=== PATIENT | female | born 1970 | race Caucasian/White ===

== ENCOUNTER 2023-10-26 14:56 | Outpatient (CLI) | payer OTHER, SELFPAY ==
--- OUTSIDE RECORDS SUMMARY | 2023-10-26 14:59 | XMS_ITS | Clinical Summary ---
Author Name Unknown Organization [employer] [facility] [employer] [facility] Address [place], [place] [address] Care Team Providers Care Clinical Trials Assistant Name Role Phone Mar Lizama MD Primary Care Provider [phone] Allergies Active Allergy Reactions Criticality Noted Date Comments Venom-Honey Bee *Unknown 12/06/2020 Lisinopril-Hydrochlorothiazide Rash Low 07/01 Medications Medication Sig Dispensed Refills Start Date End Date Status SUMAtriptan (IMITREX) 50 mg tablet Take 50 mg by mouth 2 times daily if needed. Give at minimum 2hrs apart. Max Dose: 200mg per 24hrs. Active hydrocortisone (ANUSOL-HC) 2.5 % rectal creamIndications:Hemor rhoids, external Apply topically to affected area(s) three times daily. 28 g 05/23/2022 Active amLODIPine (NORVASC) 2.5 mg tabletIndications:Esse ntial (primary) hypertension TAKE 1 TABLET (2.5 MG) BY MOUTH ONCE DAILY. 90 Tablet 1 07/15/2023 Active atorvastatin (LIPITOR) 10 mg tabletIndications:Mixe d hyperlipidemia TAKE 1 TABLET (10 MG) BY MOUTH AT BEDTIME. 90 Tablet 3 07/18/2023 Active Active Problems Problem Noted Date Diagnosed Date Pap smear for cervical cancer screening 04/25/20 Overview: 04/2021 NIL/HPV negative. Plan: Pap/HPV due 04/2026 Essential (primary) hypertension 11/01/2020 Hyperopia of both eyes with astigmatism and pres byopia 04/13/2020 HTN (hypertension) Encounters Date Type Department Care Team Description 08/03/2023 3:00 PM GRADES 9 THROUGH 12 TEACHER Office Visit [facility] [address] [place], [place] [id number] Ethan Clemons, [facility] Visit 08/03/2023 Travel from Last 3 Months Immunizations Name Administration Dates Next Due Hepatitis B (Adult) 09/24/2008,05/13/2008,2007 Influenza, IIV4 03/31/2021,05/08/2016 Td, Preservative Free (age >= 7 Years) 0 Tdap 03/18/2008 Family History Medical History Relation Name Comments Diabetes Brother Coronary artery disease Father CABG -quadruple bypass Diabetes Father Gout Father Heart failure Father Hyperlipidemia Father Hypertension Father Other Father valve replaceme nt for staph infection Lung cancer Mother Coronary artery disease Sister 1 Diabetes Sister 1 Hyperlipidemia Sister 1 Hypertension Sister 1 Uterine cancer Sister 1 No Known Problems Sister 2 Cancer-breast No Family History Relation Name Status Comments Brother Alive Father Mother Sister 1 Alive Sister 2 Alive Social History Tobacco Use Types Packs/Day Years Used Date Smoking Tobacco: Every Day Smokeless Tobacco: Never Tobacco Cessation:Ready to Q uit: No; Counseling Given: Yes Comments:<1ppd now; has been smoking intermittently since 13 y/o. Quit or 6 years then restarted. Used to smoke 1ppd for 20 years. Alcohol Use Standard Drinks/Week Comments Not Currently 0 (1 standard drink = 0.6 oz pur e alcohol) 2x/month PHQ-2 Answer Date Recorded PHQ-2 TOTAL SCORE 1 07/05/2022 Social Connections Answer Date Recorded Frequency of Communication with Friends and Fami ly Not on file 07/06/2023 Financial Resource Strain Answer Date R ecorded Difficulty of Paying Living Expenses 3 07/05/2022 Difficulty of Paying Living Expenses Not on file 07/05/2022 Food Insecurity Answer Date Recorded Worried About Running Out of Food in the Last Ye ar 1 07/05/2022 Transportation Needs Answer Date Record ed Lack of Transportation (Medical) 1 07/05/2022 Housing Stability Answer Date Recorded Unable to Pay for Housing in the Last Year 1 07/05/2022 Sex and Gender Information Value Date Recorded Sex Assigned at Not on file Gender Identity Not on file Sexual Orientation Not on file Obstetrics History Para Term AB IAB SAB Ectopic Multiple Livin g Live Births 4 3 Date Outcome GA Total Labor Labor/2nd/3rd Weight Sex Delivery Anes PTL Gladys A1 A5 Name Cl in Para Para Para Last Filed Vital Signs Vital Sign Reading Time Taken Comments Blood Pressure 128/62 07/13/2023 1:42 PM GRADES 9 THROUGH 12 TEACHER Pulse 80 07/13/2023 1:42 PM GRADES 9 THROUGH 12 TEACHER Temperature 36.5 ??C (97.7 ??F) 05/14/2023 9:16 AM CS T Respiratory Rate - - Oxygen Saturation 96% 07/13/2023 1:42 PM GRADES 9 THROUGH 12 TEACHER Inhaled Oxygen Concentration - - Weight 80.9 kg (178 lb 6.4 oz) 07/13/2023 1:42 P M GRADES 9 THROUGH 12 TEACHER Height 163.5 cm (5' 4.37) 07/05/2022 8:45 AM CS T Body Mass Index 30.27 07/05/2022 8:45 AM GRADES 9 THROUGH 12 TEACHER Plan of Treatment Health Maintenance Due Date Last Done Comments Pneumococcal series for age 6-64 (1 of 2 - PCV) 1977 HIV for age 15-65 1986 Hepatitis C screening for ag e 18-79 1989 Zoster (shingles) series for age 50+ (1 of 2) 2021 Mammogram for age 45-75 05/18/2022 05/18/20, 08/26/2019, 08/12/2013, Additional history exists COVID-19 vaccine series () 02/23/2023 BMI (ht and wt on same day) for age 18+ 07/05/2023 07/05/2022, 01/10/2021, 12/06/2020 Depression screening for age 12+ 07/05/2023 07/05/19 23 Influenza for age 50-64 02/24/2024 03/31/2021, 05/08 Colonoscopy through age 75 09/22/2025 09/22/2022 Pap test for age 21-65 05/18/2026 , 05/18/2021, 02/12/2018, Additional history exists Lipids for age 45-75 07/05/2027 07/05/2022, 05/18/20 21 Tetanus booster 07/07/2029 07/07/2019, 03/18/2008 Tdap Completed 03/18/2008 Procedures Procedure Name Priority Date/Time Associated Diagnosis Comments SCAN-COLONOSCOPY 09/22/2022 8:00 AM CDT LC LIPID PANEL AND CHOL/HDL RATIO Routine 07/05/2022 9:36 AM GRADES 9 THROUGH 12 TEACHER Routine general medical examination at a health care facility XR MAMMO POLI BILAT SCREEN Routine 05/18/2021 11:35 AM GRADES 9 THROUGH 12 TEACHER Visit for screening mammogram HPV THIN PREP Routine 05/18/2021 9:30 AM GRADES 9 THROUGH 12 TEACHER Cervical cancer screening from Last 3 Months or Most Recently Relevant to Health Maintenance Results * SCAN-COLONOSCOPY (09/22/2022 8:00 AM CDT) Narrative Procedure Note Vince Knapp MD - 09/22/2022 6:54 AM CDT [facility] [address], [address], [place] [address] Patient Name: Shanti So Gender: Female Exam Date: 09/22/2022 Visit Number: [id number] Age: 52 Years Date of : 1970 Attending MD: Vince Knapp MD Medical Record#: [id number] Procedure: Colonoscopy Indications: Previous adenomatous polyp(s) Referring MD: Mar Lizama MD Primary MD: Mar Lizama MD Medications: Admitting Medications: 0.9% Normal Saline at TKO Intra Procedure Medications: Patient received monitored anesthesia care. Complications: No immediate complications Procedure: An examination of the heart and lungs was performed and found to be withinacceptable limits. . The patient was therefore deemed a reasonablecandidate for endoscopy and sedation. The risks and benefits of the procedure were explained to the patient.After obtaining informed consent, the patient received monitoredanesthesia care and I passed the scope without difficulty via the rectum to the cecum. The appendiceal orificeand ic valve were identified. The scope was retroflexed during theexamination The quality of the prep was good (Luca/Gat Split). This was a complete examination throughout the entire colon. Findings: Polyp location: cecum. Quantity: 1. Size: 10 mm. Polyp shape: sessile. Maneuver: polypectomy was performed with a cold snare. Removal: complete. Retrieval: complete. Bleeding: none. Polyp location: ascending colon. Quantity: 1. Size: 6 mm. Polyp shape:flat lesion. Maneuver: polypectomy was performed with a cold snare . Removal: complete. Retrieval: complete. Bleeding: none. Polyp location: transverse colon. Quantity: 1. Size: 6 mm. Polypshape: sessile. Maneuver: polypectomy was performed with a cold snare . Removal: complete. Retrieval: complete. Bleeding: none. Location: sigmoidQuantity: 2. Size: 8 mm, 6 mm. Polyp shape: sessile. Maneuver: polypectomy was performed with a cold snare . Removal: complete. Retrieval: complete. Bleeding: none. Polyp location: rectum. Quantity: 1. Size: 8 mm. Polyp shape: flatlesion. Maneuver: polypectomy was performed with a cold snare . Removal: complete. Retrieval: complete. Bleeding: none. Several other 2-3 mm, hyperplastic appearing polyps were seen in therectum. The rectal polyp resected and mentioned above (8mm) was larger anddistinct from the other small hyperplastic polyps. Diverticulosis. Location: - sigmoid. Size: small. Quantity:few. Anal canal: internal hemorrhoid(s) Remainder of the exam is normal. Impression: Colorectal polyps Diverticulosis of colon without diverticulitis Hemorrhoids, internal Preliminary Plan: The patient and their physician will receive a copy of the pathologyreport as well as pathology-based recommendations for future screening orsurveillance. Recommendation Comments: High fiber diet Pathology Results: A: COLON, CECUM, POLYP: 1. Tubular adenoma which is an advanced adenoma due to size (seecomment) 2. Negative for high grade dysplasia and invasive malignancy 3. Per the colonoscopy report: a. Polyp size: 10 mm b. Resection: Complete c. Retrieval: Complete B: COLON, ASCENDING, POLYP: 1. Tubular adenoma 2. Negative for high grade dysplasia 3. Per the colonoscopy report: a. Polyp size: 6 mm b. Resection: Complete c. Retrieval: Complete C: COLON, TRANSVERSE, POLYP: 1. Sessile serrated adenoma 2. Negative for overt dysplasia 3. Per the colonoscopy report: a. Polyp size: 6 mm b. Resection: Complete c. Retrieval: Complete D: COLON, SIGMOID, POLYPS: 1. Tubular adenoma (1) and sessile serrated adenoma (1) a. Negative for overt dysplasia in sessile serrated adenomacomponent b. Negative for high grade dysplasia in tubular adenomacomponent 2. Per the colonoscopy report: a. Polyp sizes: 6 mm and 8 mm b. Resection: Complete c. Retrieval: Complete E: RECTUM, POLYP: 1. Hyperplastic polyp COMMENTS A. Advanced adenoma of the colorectum is defined by the [place] [employer] (ACG) as an adenoma that is 1 cm or more in size,contains an appreciable villous component, or has high grade dysplasia(Enrike LAO; Polyp Guideline: Diagnosis, Treatment, and Surveillance forPatients with Colorectal Polyps. Am J [id number];95(11):4447-3324). This polyp qualifies as such. Patients withadvanced adenomas are at increased risk for synchronous and metachronousadditional advanced adenomas. Appropriate follow-up is suggested. MICROSCOPIC A: Performed B: Performed C: Performed D: Performed E: Performed Electronically signed by: Lj Hendrickson MD Interpreted at [facility], [address] [place] [address] Orders Instruction(s)/Education: Instruction/Education Timeframe Assessment Colon Cancer Prevention K63.5 Colon Polyps K63.5 Diverticulosis/Diverticulitis K63.5 Hemorrhoids K63.5 High Fiber Diet K63.5 Final Plan: Repeat colonoscopy in 3 years. We will attempt to contact you at appropriate intervals via U.S. mail. Wemay not be able to find you or contact you at that time, therefore youshould know that the responsibility for following our recommendation restswith you. If you don't hear from us at the time your procedure is due,please contact our office to schedule an appointment. If your contactinformation should change, please contact our office so that we can updateyour record. _Electronically signed by: Vince Knapp MD 09/22/2022 cc: Mar Lizama MD cc: Mar Lizama MD Vince DIALLOBS OTHER * (ABNORMAL) LC LIPID PANEL AND CHOL/HDL RATIO (07/05/2022 9:36 AM GRADES 9 THROUGH 12 TEACHER) [facility] Signature Cholesterol, Total 229(H) 100 - 199 mg/dL 07/08/2022 12:06 AM [facility] Triglycerides 160(H) 0 - 149 mg/dL 07/08/2022 12:06 AM [facility] HDL Cholesterol 36(L) >39 mg/dL 12:06 AM [facility] VLDL Cholesterol Jake 29 5 - 40 mg/dL 07/08/2022 12:06 AM [facility] LDL Chol Calc (NIH) 164(H) 0 - 99 mg/dL 07/08/2022 12:06 AM [facility] T. Chol/HDL Ratio 6.4(H) 0.0 - 4.4 ratio 07/08/2022 12:06 AM [facility] Comment: ?T. Chol/HDL Ratio ?Men ??Women ?1/2 Avg.Risk ??3.4 ?3.3 ?Avg.Risk ??5.0 ?4.4 ? 2X Avg.Risk ??9.6 ?7.1 ? 3X Avg.Risk 23.4 ?? 11.0 Blood BLOOD SPECIMEN / Unknown Venipuncture / Unknown 07/05/2022 9:36 AM GRADES 9 THROUGH 12 TEACHER 07/05/2022 9:42 AM GRADES 9 THROUGH 12 TEACHER Narrative [facility] - 07/08/2022 12:06 AM GRADES 9 THROUGH 12 TEACHER Performed at: ??01 - [facility] [place] [address] ??[id number] Garland Machine Operator: Xavi Jones MD, Phone: ??[phone] Mar Lizama MD SEND OUTS [facility] ([facility]) [address] [place] [id number], * XR MAMMO POLI BILAT SCREEN (05/18/2021 11:35 AM GRADES 9 THROUGH 12 TEACHER) Anatomical Region Laterality Modality BREASTS, Breast Left, Breast Right Bilateral Mammography Impressions 05/18/2021 3:51 PM GRADES 9 THROUGH 12 TEACHER ??There is no radiographic evidence for malignancy. ??Recommend annual mammograms. MAMMOGRAM ASSESSMENT: ??ACR 1 Negative PATIENTS: You will also receive a letter with your examination results in an easy to read format. ??If you have questions about your results, please contact your referring provider. Narrative 05/18/2021 3:51 PM GRADES 9 THROUGH 12 TEACHER For Patients: As a result of the Century Cures Act, medical imaging exams and procedure reports are released immediately into your electronic medical record. You may view this report before your referring provider. If you have questions, please contact your health care provider. XR MAMMO POLI BILAT SCREEN [[id number]] CLINICAL HISTORY: ??This is an asymptomatic 51 y.o. patient. INDICATION FOR EXAM: Mammogram Screening. TECHNIQUE: CC & MLO views were obtained. ??This study was evaluated with the assistance of Computer-Aided Detection. Breast Tomosynthesis was used in interpretation. COMPARISON FILM: Yes 08/26/19 [facility] 08/12/13 [facility] FINDINGS: ??The breasts are extremely dense, which lowers the sensitivity of mammography. There are no dominant masses, suspicious micro calcifications or areas of architectural distortion. Mar Lizama MD MAMMO * HPV HIGH RISK (05/18/2021 9:30 AM GRADES 9 THROUGH 12 TEACHER) TYPE 16 Negative Negative 05/24/2021 10:50 AM GRADES 9 THROUGH 12 TEACHER [facility] TYPE 18 Negative Negative 05/24/2021 10:50 AM GRADES 9 THROUGH 12 TEACHER [facility] OTHER HIGH RISK TYPES Negative Negative 05/24/2021 10:50 AM GRADES 9 THROUGH 12 TEACHER [facility] Other (Cervical) Non-Blood / Unknown 05/18/2021 9:30 AM GRADES 9 THROUGH 12 TEACHER 05/20/2021 10:29 AM GRADES 9 THROUGH 12 TEACHER Narrative [facility] - 05/24/2021 10:50 AM GRADES 9 THROUGH 12 TEACHER HPV types 16, 18, 31, 33, 35, 39, 45, 51, 52, 56, 58, 59, 66 and 68 DNA were undetectable or below the pre-set threshold. Methodology: Selam Marcos 4800 HPV Test Mar Lizama MD MICROBIOLOGY [facility] [address] [place] [address], from Last 3 Months or Most Recently Relevant to Health Maintenance Care Teams Clinical Trials Assistant Relationship Specialty [place] [address] [place] [address] PCP - General Family Practice 08/08/13
--- OUTSIDE RECORDS SUMMARY | 2023-10-26 14:59 | XMS_ITS | Clinical Summary ---
Author Name Unknown Organization [place] Address [address] [place] [address] Care Team Providers Care Dowel Inserting Machine Operator Name Role Phone Mar Lizama MD Primary Care Provider [phone] Allergies Active Allergy Reactions Criticality Noted Date Comments Bee Venom Anaphylaxis High 07/01/2020 Lisinopril-Hydrochlorothiazide Rash Low 07/01 Medications No known medications Social History Tobacco Use Types Packs/Day Years Used Date Smoking Tobacco: Every Day Smokeless Tobacco: Never Alcohol Use Standard Drinks/Week Comments Yes 0 (1 standard drink = 0.6 oz pur e alcohol) Adolescent Education Answer Date Record ed Getting School Help Needed Not on file 03/25 Sex and Gender Information Value Date Recorded Sex Assigned at Not on file Gender Identity Not on file Sexual Orientation Not on file Last Filed Vital Signs Vital Sign Reading Time Taken Comments Blood Pressure 148/100 07/04/2023 5:25 PM MANGLE FEEDER Pulse 89 07/04/2023 5:25 PM MANGLE FEEDER Temperature 36.8 ??C (98.3 ??F) 07/04/2023 1:20 PM CS T Respiratory Rate 18 07/04/2023 5:25 PM MANGLE FEEDER Oxygen Saturation 98% 07/04/2023 5:25 PM MANGLE FEEDER Inhaled Oxygen Concentration - - Weight 77.1 kg (170 lb) 07/01/2020 3:00 PM MANGLE FEEDER Height 162.6 cm (5' 4) 07/01/2020 3:00 PM MANGLE FEEDER Body Mass Index 29.18 07/01/2020 3:00 PM MANGLE FEEDER Plan of Treatment Health Maintenance Due Date Last Done Comments ADVANCE CARE PLANNING 1970 ANNUAL REVIEW OF HM ORDERS 1971 CT COLONOGRAPHY 1970 FIT 1970 FLEX SIG 1970 sDNA (Cologuard) 1970 Pneumococcal Vaccine: Pediatrics (0 to 5 Years) and At-Risk Patients (6 to 64 Years) (1 of 2 - PCV) 1977 HIV SCREENING 1986 HEPATITIS C SCREENING 1989 PAP 01/24/1992 LIPID 2011 LUNG CANCER SCREENING 2021 ZOSTER IMMUNIZATION (1 of 2) 2021 COVID-19 Vaccine (1 - 2022-2 4 season) 2023 INFLUENZA VACCINE (#1) 2023 , 05/08/2016 MAMMO SCREENING 05/18/2023 05/18/2021, 08/26/2019 PHQ-2 (once per calendar year) 2023 YEARLY PREVENTIVE VISIT 07/05/2023 07/05/19 23, 05/18/2021 GLUCOSE 07/04/2026 07/04/2023, 05/01/2006 DTAP/TDAP/TD IMMUNIZATION (3 - Td or Tdap) 07/07/2029 07/07/2019, 03/18/2008 COLONOSCOPY 09/22/2032 09/22/2022 COLORECTAL CANCER SCREENING 09/22/2032 HEPATITIS B IMMUNIZATION Completed 009, 05/13/2008, 03/18/2008 HPV IMMUNIZATION Aged Out No longer e ligible based on patient's age to complete this topic IPV IMMUNIZATION Aged Out No longer e ligible based on patient's age to complete this topic MENINGITIS IMMUNIZATION Aged Out No l onger eligible based on patient's age to complete this topic RSV MONOCLONAL ANTIBODY Aged Out No l onger eligible based on patient's age to complete this topic Medical Devices Implanted Type Area Sales Expert Home Theater Device Identifier Shelf Expiration Date Model / Serial / Lot Mirena Iud Implanted:Qty: 1 on 07/05/2020 N/A: Vagina KIRSTY 10/22/2022 [facility] [place] [id number] / / [id number] Procedures Procedure Name Priority Date/Time Associated Diagnosis Comments BASIC METABOLIC PANEL STAT 07/04/2023 1:47 PM MANGLE FEEDER MA SCREENING BILATERAL W/ POLI Routine 05/18/2021 11:35 AM MANGLE FEEDER from Last 3 Months or Most Recently Relevant to Health Maintenance Results * (ABNORMAL) Basic metabolic panel (07/04/2023 1:47 PM MANGLE FEEDER) Sodium 142 135 - 145 mmol/L 07/04/2023 2:19 PM [facility] Comment:Reference intervals for this test were updated on 03/20/2023 to more accurately reflect our healthy population. There may be differences in the flagging of prior results with similar values performed with this method. Interpretation of those prior results can be made in the context of the updated reference intervals. Potassium 3.5 3.4 - 5.3 mmol/L 07/04/2023 2:19 PM [facility] Chloride 105 98 - 107 mmol/L 07/04/2023 2:19 PM [facility] Carbon Dioxide (CO2) 26 22 - 29 mmol/L 07/04/2023 2:19 PM [facility] Anion Gap 11 7 - 15 mmol/L 07/04/2023 2:19 PM [facility] Urea Nitrogen 7.0 6.0 - 20.0 mg/dL 07/04/2023 2:19 PM [facility] Creatinine 0.59 0.51 - 0.95 mg/dL 07/04/2023 2:19 PM [facility] GFR Estimate >90 >60 mL/min/1. 73m2 07/04/2023 2:19 PM [facility] Calcium 9.2 8.6 - 10.0 mg/dL 07/04/2023 2:19 PM [facility] Glucose 107(H) 70 - 99 mg/dL 07/04/2023 2:19 PM [facility] Blood STRUCTURE OF RIGHT UPPER LIMB / Unknown Venipuncture / Unknown 07/04/2023 1:47 PM MANGLE FEEDER 07/04/2023 1:53 PM MANGLE FEEDER Ulises Rodriguez MD LAB - BLOOD ORDER [facility] [address] Lab (1st floor, no room number) [place] [address], [facility] [phone] from Last 3 Months or Most Recently Relevant to Health Maintenance Care Teams Dowel Inserting Machine Operator Relationship Specialty [place] [address] [place] [address] PCP - General Family Practice 04/21/13
--- OUTSIDE RECORDS SUMMARY | 2023-10-26 14:59 | XMS_ITS | Referral Summary ---
Author Name Unknown Organization [place] Address [address] [place] [address] Care Team Providers Care Ladle Handler Name Role Phone Mar Lizama MD Primary Care Provider [phone] Allergies Active Allergy Reactions Criticality Noted Date [...] Comments Blood Pressure 148/100 07/04/2023 5:25 PM WARRANTY MANAGER Pulse 89 07/04/2023 5:25 PM WARRANTY MANAGER Temperature 36.8 ??C (98.3 ??F) 07/04/2023 1:20 PM CS T Respiratory Rate 18 07/04/2023 5:25 PM WARRANTY MANAGER Oxygen Saturation 98% 07/04/2023 5:25 PM WARRANTY MANAGER Inhaled Oxygen Concentration - - Weight 77.1 kg (170 lb) 07/01/2020 3:00 PM WARRANTY MANAGER Height 162.6 cm (5' 4) 07/01/2020 3:00 PM WARRANTY MANAGER Body Mass Index 29.18 07/01/2020 3:00 PM WARRANTY MANAGER Plan of Treatment Not on file Medical Devices Implanted Type Area Ranch Helper Device Identifier Shelf Expiration Date Model / Serial / Lot Mirena Iud Implanted:Qty: 1 on 07/05/2020 N/A: Vagina KIRSTY 10/22/2022 [facility] [place] [id number] / / [id number] Procedures Procedure Name Priority Date/Time Associated Diagnosis Comments BASIC METABOLIC PANEL STAT 07/04/2023 1:47 PM WARRANTY MANAGER MA SCREENING BILATERAL W/ POLI Routine 05/18/2021 11:35 AM WARRANTY MANAGER from Last 3 Months or Most Recently Relevant to Health Maintenance Results * (ABNORMAL) Basic metabolic panel (07/04/2023 1:47 PM WARRANTY MANAGER) [facility] Sodium 142 135 - 145 mmol/L 07/04/2023 2:19 PM WARRANTY MANA[facility] Comment:Reference intervals for this test were updated on 03/20/2023 to more accurately reflect our healthy population. There may be differences in the flagging of prior results with similar values performed with this method. Interpretation of those prior results can be made in the context of the updated reference intervals. Potassium 3.5 3.4 - 5.3 mmol/L 07/04/2023 2:19 PM WARRANTY MANAGER [facility] Chloride 105 98 - 107 mmol/L 07/04/2023 2:19 PM [facility] MA[facility] Carbon Dioxide (CO2) 26 22 - 29 mmol/L 07/04/2023 2:19 PM WARRANTY MANA[facility] Anion Gap 11 7 - 15 mmol/L 07/04/2023 2:19 PM [facility] MA[facility] Urea Nitrogen 7.0 6.0 - 20.0 mg/dL 07/04/2023 2:19 PM [facility] Creatinine 0.59 0.51 - 0.95 mg/dL 07/04/2023 2:19 PM [facility] MA[facility] GFR Estimate >90 >60 mL/min/1. 73m2 07/04/2023 2:19 PM [facility] MA[facility] Calcium 9.2 8.6 - 10.0 mg/dL 07/04/2023 2:19 PM [facility] Glucose 107(H) 70 - 99 mg/dL 07/04/2023 2:19 PM [facility] Blood STRUCTURE OF RIGHT UPPER LIMB / Unknown Venipuncture / Unknown 07/04/2023 1:47 PM WARRANTY MANAGER 07/04/2023 1:53 PM WARRANTY MANAGER Ulises Rodriguez MD LAB - BLOOD ORDER [facility] Acute [facility] Lab [address] Lab (1st floor, no room number) [place] [address], [facility] [phone] from Last 3 Months or Most Recently Relevant to Health Maintenance Care Teams Ladle Handler Relationship Specialty [place] [address] [place] [address] PCP - General Family Practice 04/21/13
--- OUTSIDE RECORDS SUMMARY | 2023-10-26 14:59 | XMS_ITS | Data Portability ---
Author Name Unknown Address [address] [place] [address] Phone [phone] Organization [facility] [employer] [facility], [id number] Address [address] [place] [phone] Assessment No assessment recorded. Plan of Treatment Reminders Order Date Submit Date Provider Last Modified By Organization Details Last Modified Time Details Appointments None recorded. Lab None recorded. Referral None recorded. Procedures None recorded. Surgeries None recorded. Imaging US, transvagina l 2019 020 amies [facility] [place], [address] [place], [address], 0 22:37:53 US, pelvis 2019 020 [email or web address] [facility] Deming, [address], [place], [address], 0 18:50:24 US, transvagina l 2019 020 [email or web address] Not available 0 10:18:09 Medication Orders None recorded. Patient TargetsNo targets recorded. Patient InstructionsNo instructions recorded. Reason for Referral None Reported. Results Created Date Observation Date Name Description Value Unit Range Abnormal Flag LastModifiedBy Organization Detail LastModifiedTime 06/01/20 20 US, pelvi s No observ ation record ed. [email or web address] [facility] [place] [address], [place], [address], 06/07/2020 10:08:39 06/02/20 20 US, trans vagin al No observ ation record ed. amies Elizabeth [address], [place], [address], 06/20/2020 09:47:43 Result Notes None recorded. Procedures Surgical History Date Name Laterality Status Provider Name and Address Organization Details Recorded Time 0 Date of Last Pap Smear completed Jennyfer Kandice TERMED null, [place] - [facility] 05/25/2020 17:38:17 ligation of bilateral fallopian tubes completed Not Available [facility] 01/29/2020 05:09:51 Imaging Results Imaging Date Name Status LastModified by Organization Details LastModified Time 06/01/2020 US, pelvis completed [email or web address] ro [facility] Assistant [place] [address], [place], [address], 06/07/2020 10:08:39 06/02/2020 US, transvaginal completed adiel Elizabeth [address], [place], [address], 06/20/2020 09:47:43 Procedure Notes None recorded. Medical Equipment None Reported. Allergies Allergen ID Allergen Name Allergen Category Reaction Reaction Severity Criticality Documentation Date Start Date Code Code System Note Provider Name and Address Organization Details Recorded Time 499026 honey bee venom medicatio n Not available Not available Not available 05/26/2020 62333 7 RxNorm Jennyfer Woodson TERMED null, [place] - [facility] 0 14:40:18 Medications Name Sig Start Date Stop Date Status Note LastModified by Organization Details LastModified Time sumatriptan 50 mg tablet TK 1 T PO PRF MIGRAIN E. MAY REPEAT DOSE Q 2 H . MDD 4 TS PER DAY 05/26 completed Not Available Not Available Not Available amlodipine 5 mg tablet TK 1 T PO D active Not Available Not Available No t Available Fluarix Quad (PF) 60 mcg (15 mcg x 4)/0.5 mL IM syringe ADM 0.5ML IM UTD active Not Available Not Available No t Available Vitals Date Recorded Body mass index (BMI) Body height Body weight Systolic blood pressure Diastolic blood pressure Provider Name and Address Organization Details Last Updated DateTime 08/26/2019 29.35 kg/m2 162.4584 cm 79742.29 527 g 122 mm[Hg] 82 mm[Hg] Not Available [facility] 0 06:34:51 Date Recorded Body height Body mass index (BMI) Body weight Systolic blood pressure Diastolic blood pressure Provider Name and Address Organization Details Last Updated DateTime 05/26/2020 162.4584 cm 29.9 kg/m2 93398.35 g 140 mm[Hg] 84 mm[Hg] Jennyfer Woodson TERMED null, [facility] [employer] 0 14:39:59 Date Recorded Body height Body mass index (BMI) Body weight Systolic blood pressure Diastolic blood pressure Provider Name and Address Organization Details Last Updated DateTime 06/01/2020 162.4584 cm 30.1 kg/m2 75099.66 g 122 mm[Hg] 70 mm[Hg] Lou Henriquez (TERMED) null, [facility] [employer] 0 17:11:00 Date Recorded Body height Body mass index (BMI) Body weight Systolic blood pressure Diastolic blood pressure Provider Name and Address Organization Details Last Updated DateTime 07/20/2020 162.4584 cm 30.1 kg/m2 28875.66 g 136 mm[Hg] 78 mm[Hg] Lou Turnpatriciaom (TERMED) null, [facility] [employer] 1 12:13:08 Social History Question Answer Notes LastModified by [employer] Details LastModified Time Tobacco Smoking Status Current Every Day Smoker Tobacco *Status: Current every day Not Available [facility] 02/02/2020 11:57:44 What Is Your Level Of Caffeine Consumption? None Caffeine Information not available 02/02/2020 History Of Domestic Violence No Denies Any History Of Domestic Violence Information not available 02/02/2020 Marital Status Information not available 02/02/2020 Are You Sexually Active? Yes Currently Sexually Active Information not available 02/02/2020 Sex: Female Functional Status Question Answer Note LastModified by [employer] Details LastModified Time What is your exercise level? Moderate Exercise on a Regular Basis Information not available 02/02/2020 Mental Status None recorded. Family History Relationship Description Onset Age of this Age Resolved Age Notes Brother Family history of clinical finding Family history of sleep apnea Brother Family history of cancer Family History o f Cancer; Thyroid Mother Family history: neoplasm - trachea/bronchus/lung Family his tory of lung cancer Sister Family history of malignant neoplasm of genital structure Family history of uterine cancer Father Family history of Cardiovascular disease Family History o f Cardiac Arrhythmia Notes:Family History of Diab etes ICD-9 V18.0 Medical History Condition Response Cardiology- High Blood Pressure Gynecological History Statement/Question Response Menstrual Cycle Length (days) 5 Date of Last Pap Smear 07/28/2019 Age at Menarche: 13 Date of LMP 05/22/2020 Obstetrics History GPAL:G 3 P 3 0 0 3 Type Value Multiple Births 0 Full Term 3 Induced 0 Spontaneous 0 Premature 0 Living 3 Ectopics 0 Total 3 Past Encounters Encounter ID Performer Location Encounter Start Date Encounter Closed Date Diagnosis/Indication Diagnosis SNOMED-CT Code [id number] CRISTAL AMOS MD [id number] [facility] [id number] [place] [id number] 05/26/2020 14:30:35 05/26/2020 15:16:48 Menorrhagia [id number] CRISTAL AMOS MD [id number] [address] [address] 06/01/2020 16:37:22 06/01/2020 18:50:24 Menorrhagia [id number] CRISTAL AMOS MD [id number] [facility] [id number] [place] [phone] 06/01/2020 17:00:24 06/02/2020 12:53:27 Menorrhagia [id number] CRISTAL AMOS MD [id number] [address] [address] 07/20/2020 11:56:21 07/21/2020 10:23:40 Menorrhagia [id number] Health Concerns Section Related Observation LastModified by Organization Detai ls LastModified Time None Recorded Concern Status LastModified by Organization Details LastModified Time None Recorded Advance Directives Directive None Recorded Payers Encounter Date Sequence Insurance Name Policy Number Policy Jesus Covered Member ID Jesus Member ID Guarantor Name 07/20/2020 1 PREFERREDONE (PPO) [id number] Shanti Mixon Vanden[place]vel [id number] Shanti Mixon Vanden[place]uvel 06/01/2020 1 *SELF PAY* Nathan Mixon Vanden[place]uvel 06/01/2020 1 *SELF PAY* Nathan Mixon Vanditaeuvel Notes Date Note Type Note Provider Name and Address Organization Details Recorded Time 05/26/2020 text/html HPI Notes: Mauro naylor presents today for abnormal uterine bleeding The patient states the bleeding began in August 2019. This is the patient's subsequent follow up visit for this issue. Her past medical history is non-contributory. She has not had a blood count since developing this problem. The patient indicates she has not had an ultrasound or hysteroscopy 1 year ago. Are there any alleviating factors? No. Are there any aggravating factors? No. Are there any additional complaints? No. Other: ___[place] [address], [place], [address], [facility] - [facility] [employer] 05/29/2020 22:36:03 06/01/2020 text/html HPI Notes: [place] [address], [place], [address], [facility] - [facility] [employer] 06/01/2020 21:18:25 07/20/2020 text/html HPI Notes: Surge ry Date: 07/05/2020. Patient presents for her post-operative evaluation. Surgical procedure: Fractional D&C, operative hysteroscopy and insertion of Mirena IUD. Indication: Menorrhagia. Pathology findings: benign. The procedure was done by: Cristal Amos MD. She has no current [place] [address] [facility],[address], [place], [address], [facility] - [facility] [facility] [facility] 07/20/2020 12:33:12 OBGyn Episode No OBEpisode recorded.
--- NOTE | 2023-10-26 15:30 | MR_ITS ---
[facility] [address] [address] Phone:?[phone] Fax:?[phone] Referring Physician Information: Matt Thoams M.D. [address] [place] [address] Phone:?[phone] Fax:?[phone] Patient:Rodri So D.O.B:?1970 Sex:?Female Phone:?[phone] [facility] MRN:?[id number] Exam Date:?10/26/2023 EXAM: MRI of the RIGHT KNEE, without contrast CLINICAL INFORMATION: Female, 53 years old, with knee pain INDICATION: evaluate for medial meniscal tear PRIOR SURGERY: None reported. PLAIN FILMS: Radiographs 10/15/2023. COMPARISONS: No prior MRIs available. TECHNICAL INFORMATION: Using a 1.5T MR scanner and a localizing surface coil: sagittals: PD, PDFS coronals: PD, T2FS axials: PD, PDFS SEDATION: None CONTRAST: None FINDINGS: Knee joint: Effusion: Moderate size knee joint effusion with synovitis Popliteal cyst: Trace popliteal cyst, without evidence of rupture Loose bodies: None. Subcutaneous and extra-articular soft tissues: Moderate prepatellar subcutaneous soft tissue edema and skin thickening. Ligaments: ACL: Intact ACL anteromedial and posterolateral bundles, without sprain or tear. PCL: Intact PCL, without acute or chronic injury. MCL: Intact MCL superficial and deep layers, without injury. LCL: Intact LCL, without injury. Posterolateral corner: No posterolateral corner soft tissue injury. Popliteus, biceps femoris, iliotibial band, popliteofibular ligament and lateral gastrocnemius are intact. Posteromedial corner: No posteromedial corner soft tissue injury. Semimembranosus, pes anserine tendons and posterior oblique ligament are without injury, tendinopathy or bursitis. Extensor mechanism: Patellar tendon: The patellar tendon is moderately thickened proximally with intrasubstance signal heterogeneity and undersurface fraying, without high-grade tearing or retraction. Quadriceps tendon: Intact, without tendinopathy. Retinacula: Medial and lateral retinacula are intact. Fat pads: Moderate edema signal in the infrapatellar Hoffa's fat pad adjacent to the patellar tendon. Medial compartment: Medial meniscus: There is horizontal undersurface and apical free edge tearing of the medial meniscus along the posterior horn over a length of approximately 1.4 cm (sagittal series 5 image 21). Blunting along the body segment with poorly defined apical free edge tearing and 5 mm peripheral meniscal extrusion, with 5 mm inferior extension into the medial gutter. Medial femoral condyle: Grade III/IV chondromalacia along the central and posterior weightbearing surface of the medial femoral condyle with minimal peripheral osteophytosis. Medial tibial plateau: Grade III/IV chondromalacia along the central weightbearing medial tibial plateau with minimal peripheral osteophytosis. Lateral compartment: Lateral meniscus: No articular surface, meniscosynovial junction or root tear. No displacement, extrusion or parameniscal cyst. Lateral femoral condyle: Grade 2 chondral thinning along the central aspect of the weightbearing surface of the lateral femoral condyle without underlying marrow reactive edema. Lateral tibial plateau: No chondromalacia or osteochondral abnormality. Patellofemoral joint: Patella: Focal region of grade II chondromalacia involving the mid patella without underlying marrow reactive edema. Trochlea: Focal region of grade III chondromalacia involving the central trochlea measuring 1.2 x 0.4 cm without underlying marrow reactive edema. Grade II chondromalacia of the medial trochlea. Proximal tibiofibular joint: Unremarkable, without evidence of ligament sprain injury, joint effusion or adjacent marrow edema. Bones: No stress/occult fractures. Minimal marrow edema in the inferior central pole of the patella (axial series 4 image 17). IMPRESSION: 1. Horizontal undersurface tearing of the posterior horn medial meniscus, with intact appearance of the posterior root. Blunting of poorly defined apical free edge tearing along the body segment with 5 mm peripheral meniscal extrusion, 5 mm inferior extension into the medial gutter. 2. Moderate proximal patellar tendinosis with undersurface fraying, without high-grade tearing or retraction. There is relatively prominent adjacent soft tissue edema in the infrapatellar Hoffa's fat pad with additional mild marrow edema in the inferior pole of the patella. 3. Moderate medial compartment osteoarthritis. 4. Mild patellofemoral, and minimal chondromalacia of the lateral femoral condyle. 5. No cruciate or collateral ligament sprain/tear. 6. Moderate size knee joint effusion with synovitis. KME Electronically signed on 10/29/2023 9:44:00 AM by Gabriela Bourne M.D.
== END 2023-10-26 14:57 | disposition home or self-care (01) ==
LOC: MRI 14:57
PROVIDERS: PCP Family Medicine; Visit Provider Orthopaedic Surgery
DX: M25.561 Pain in right knee (principal); S83.221A Peripheral tear of medial meniscus, current injury, right knee, initial encounter; M17.11 Unilateral primary osteoarthritis, right knee; M25.461 Effusion, right knee
CPT/HCPCS: 73721

== ENCOUNTER 2023-11-29 06:27 | Day surgery (SDC) | payer OTHER, SELFPAY ==
[2023-11-29] VITALS (12 sets, daily range): BP systolic 102–137; BP diastolic 66–96; PULSE 60–80; RESP 14–16; TEMP 36.3–36.6; O2SAT 90–97; BMI 30.6
--- OUTSIDE RECORDS SUMMARY | 2023-11-29 06:30 | XMS_ITS | Clinical Summary ---
Author Organization [facility] Address [address] [facility] [place] [address] Care Team Providers Care Maintenance Trainer Name Role Phone Mar Lizama MD Primary Care Provider [phone] Allergies Active Allergy Reactions Criticality Noted Date [...] Comments Blood Pressure 148/100 07/04/2023 5:25 PM T[facility]ER Pulse 89 07/04/2023 5:25 PM TACK MAKER Temperature 36.8 ??C (98.3 ??F) 07/04/2023 1:20 PM CS T Respiratory Rate 18 07/04/2023 5:25 PM TACK MAKER Oxygen Saturation 98% 07/04/2023 5:25 PM TACK MAKER Inhaled Oxygen Concentration - - Weight 77.1 kg (170 lb) 07/01/2020 3:00 PM TACK MAKER Height 162.6 cm (5' 4) 07/01/2020 3:00 PM TACK MAKER Body Mass Index 29.18 07/01/2020 3:00 PM TACK MAKER Plan of Treatment Health Maintenance Due Date [...] Vaccine (1 - 2022-2 4 season) 2023 MAMMO SCREENING 05/18/2023 05/18/2021, 08/26/2019 PHQ-2 (once per calendar year) 2023 YEARLY PREVENTIVE VISIT 07/05/2023 07/05/19 23, 05/18/2021 INFLUENZA VACCINE (Season Ended) 2024 03/31/2021, 05/08/2016 GLUCOSE 07/04/2026 07/04/2023, 05/01/2006 DTAP/TDAP/TD IMMUNIZATION (3 [...] this topic Medical Devices Implanted Type Area Assistant Scientist Device Identifier Shelf Expiration Date Model / Serial / Lot Mirena Iud Implanted:Qty: 1 on 07/05/2020 N/A: Vagina KIRSTY 10/22/2022 [facility] [id number] / / [id number] Procedures Procedure Name Priority Date/Time Associated Diagnosis Comments BASIC METABOLIC PANEL STAT 07/04/2023 1:47 PM TACK MAKER MA SCREENING BILATERAL W/ POLI Routine 05/18/2021 11:35 AM TACK MAKER from Last 3 Months or Most Recently Relevant to Health Maintenance Results * (ABNORMAL) Basic metabolic panel (07/04/2023 1:47 PM TACK MAKER) Sodium 142 135 - 145 mmol/L 07/04/2023 2:19 PM [facility] Comment:Reference intervals for this test were updated on 03/20/2023 to more accurately reflect our healthy population. There may be differences in the flagging of prior results with similar values performed with this method. Interpretation of those prior results can be made in the context of the updated reference intervals. Potassium 3.5 3.4 - 5.3 mmol/L 07/04/2023 2:19 PM [facility] Chloride 105 98 - 107 mmol/L 07/04/2023 2:19 PM [facility] Carbon Dioxide (CO2) 26 22 - 29 mmol/L 07/04/2023 2:19 PM [facility] Anion Gap 11 7 - 15 mmol/L 07/04/2023 2:19 PM [facility] Urea Nitrogen 7.0 6.0 - 20.0 mg/dL 07/04/2023 2:19 PM [facility] Creatinine 0.59 0.51 - 0.95 mg/dL 07/04/2023 2:19 PM [facility] GFR Estimate >90 >60 mL/min/1. 73m2 07/04/2023 2:19 PM [facility] Calcium 9.2 8.6 - 10.0 mg/dL 07/04/2023 2:19 PM [facility] Glucose 107(H) 70 - 99 mg/dL 07/04/2023 2:19 PM [facility] Blood STRUCTURE OF RIGHT UPPER LIMB / Unknown Venipuncture / Unknown 07/04/2023 1:47 PM TACK MAKER 07/04/2023 1:53 PM TACK MAKER Ulises Rodriguez MD LAB - BLOOD ORDER [facility] [address] Lab (1st floor, no room number) [place] [address], [facility] [phone] from Last 3 Months or Most Recently Relevant to Health Maintenance Care Teams Maintenance Trainer Relationship Specialty [place] [address] [place] [address] PCP - General Family Practice 04/21/13
--- OUTSIDE RECORDS SUMMARY | 2023-11-29 06:30 | XMS_ITS | Clinical Summary ---
Author Organization [facility] Address [place], [place] [address] Care Team Providers Care Facility Operations Manager Name Role Phone Mar Lizama MD Primary Care Provider [phone] Allergies Active Allergy Reactions Criticality Noted Date [...] AT BEDTIME. 90 Tablet 3 07/18/2023 Active rhubarb root extract (Estroven Cmplt Menopause Rlf) 4 mg tab 09/22/2022 Active Active Problems Problem Noted Date Diagnosed Date Pap smear for cervical cancer screening 04/25/20 21 Overview: 04/2021 NIL/HPV negative. Plan: Pap/HPV due 04/2026 Essential (primary) hypertension 11/01/2020 Hyperopia of both eyes with astigmatism and pres byopia 04/13/2020 HTN (hypertension) Encounters Date Type Department Care Team Description 11/23/2023 7:50 AM CDT Preop Visit [facility] [address] [place] [address] EmbertMar MD Preoperative Exam (--6*6*24--Knee Procedure (Right)--[facility]--Chilango Salcedo MD.) 11/23/2023 Travel 10/26/2023 Orders Only [facility] Scanner 1 scan: (1-Ord) [place] [place], MRI RT KNEE WO CON, 10/26/2023 10/26/2023 Orders Only [facility] Scanner 1 scan: (1-Ord) [facility], MRI OF THE RT KNEE, WITHOUT CONTRAST, 10/26/2023 from Last 3 Months Immunizations Name Administration [...] Years Used Date Smoking Tobacco: Every Day Cigarettes 1 46.4 Started: 06/25/1973; Last attempted to quit: 06/25/2017 Smokeless Tobacco: Never Tobacco Cessation:Ready to Q uit: Not Asked; Counseling Given: Not Answered Comments:<1ppd now; has been smoking intermittently since 13 y/o. Quit 6 years then restarted 2021. Used to smoke 1ppd for 20 years. Alcohol Use Standard Drinks/Week Comments Not Currently 0 (1 standard drink = 0.6 oz pur e alcohol) PHQ-2 Answer Date Recorded PHQ-2 TOTAL SCORE 0 11/22/2023 Social Connections Answer Date Recorded Frequency of [...] Sign Reading Time Taken Comments Blood Pressure 138/68 11/23/2023 7:54 AM CDT Pulse 85 11/23/2023 7:54 AM CDT Temperature 36.5 ??C (97.7 ??F) 05/14/2023 9:16 AM CS T Respiratory Rate - - Oxygen Saturation 94% 11/23/2023 7:54 AM CDT Inhaled Oxygen Concentration - - Weight 80.9 kg (178 lb 6.4 oz) 11/23/2023 7:54 A M CDT Height 163.5 cm (5' 4.37) 07/05/2022 8:45 AM CS T Body Mass Index 30.27 07/05/2022 8:45 AM MACHINE TOOL ELECTRICIAN Plan of Treatment Health Maintenance Due Date Last Done Comments Pneumococcal series for age 6-64 (1 of 2 - PCV) 1977 HIV for age 15-65 1986 Hepatitis C screening for ag e 18-79 1989 Zoster (shingles) series for age 50+ (1 of 2) 2021 Mammogram for age 45-75 05/18/2022 05/18/20 21, 08/26/2019, 08/12/2013, Additional history exists COVID-19 vaccine series ( - 2022- season) 2023 BMI (ht and wt on same day) for age 18+ 07/05/2023 07/05/2022, 01/10/2021, 12/06/2020 Influenza for age 50-64 02/24/2024 03/31/2021, 05/08 Depression screening for age 12+ 11/22/2024 11/23/2023, 11/22/2023, 07/05/2022 Colonoscopy through age 75 09/22/2025 09/22/2022 Pap test for age 21-65 05/18/2026 , 05/18/2021, 02/12/2018, Additional history exists Lipids for age 45-75 07/05/2027 07/05/2022, 05/18/20 21 Tetanus booster 07/07/2029 07/07/2019, 03/18/2008 Tdap Completed 03/18/2008 Procedures Procedure Name Priority Date/Time Associated Diagnosis Comments SCAN-MRI INTERPRETATION 10/26/2023 12:00 AM CDT SCAN-MRI INTERPRETATION 10/26/2023 12:00 AM CDT SCAN-COLONOSCOPY 09/22/2022 8:00 AM CDT LC LIPID PANEL AND CHOL/HDL RATIO Routine 07/05/2022 9:36 AM MACHINE TOOL ELECTRICIAN Routine general medical examination at a [facility] XR MAMMO POLI BILAT SCREEN Routine 05/18/2021 11:35 AM MACHINE TOOL ELECTRICIAN Visit for screening mammogram HPV THIN PREP Routine 05/18/2021 9:30 AM MACHINE TOOL ELECTRICIAN Cervical cancer screening from Last 3 Months or Most Recently Relevant to Health Maintenance Results * SCAN-MRI INTERPRETATION (10/26/2023 12:00 AM CDT) Only the most recent of2 resultswithin the time period is included. Anatomical Region Laterality Modality Other Scanner OTHER * SCAN-COLONOSCOPY (09/22/2022 8:00 AM CDT) Narrative Procedure Note Vince Knapp MD - 09/22/2022 6:54 AM CDT [facility] [facility], [address], [place] [address] Patient Name: Shanti So Gender: Female Exam Date: 09/22/2022 Visit Number: [id number] Age: 52 Years Date of : 1970 Attending MD: Vince Knapp MD Medical Record#: [id number] Procedure: Colonoscopy Indications: Previous adenomatous polyp(s) Referring [...] of the colorectum is defined by the [employer] (ACG) as an adenoma that is 1 cm or more in size,contains an appreciable villous component, or has high grade dysplasia(Enrike LAO; Polyp Guideline: Diagnosis, Treatment, and Surveillance forPatients with Colorectal Polyps. Am J [id number];95(11):4891-3379). This polyp qualifies as such. Patients withadvanced adenomas are at increased risk for synchronous and metachronousadditional advanced adenomas. Appropriate follow-up is suggested. MICROSCOPIC A: Performed B: Performed C: Performed D: Performed E: Performed Electronically signed by: Lj Hendrickson MD Interpreted at [facility], [address] [place] [address] Orders Instruction(s)/Education: Instruction/Education Timeframe Assessment Colon Cancer [...] Lizama MD cc: Mar Lizama MD Vince YODER OTHER * (ABNORMAL) LC LIPID PANEL AND CHOL/HDL RATIO (07/05/2022 9:36 AM MACHINE TOOL ELECTRICIAN) Cholesterol, Total 229(H) 100 - 199 mg/dL 07/08/2022 12:06 AM [facility] Triglycerides 160(H) 0 - 149 mg/dL 07/08/2022 12:06 AM [facility] ([facility]) HDL Cholesterol 36(L) >39 mg/dL 12:06 AM [facility] ([facility]) VLDL Cholesterol Jake 29 5 - 40 mg/dL 07/08/2022 12:06 AM [facility] ([facility]) LDL Chol Calc ([facility]) 164(H) 0 - 99 mg/dL 07/08/2022 12:06 AM [facility] ([facility]) T. Chol/HDL Ratio 6.4(H) 0.0 - 4.4 ratio 07/08/2022 12:06 AM [facility] ([facility]) Comment: ?T. Chol/HDL Ratio ?Men ??Women ?1/2 Avg.Risk ??3.4 ?3.3 ?Avg.Risk ??5.0 ?4.4 ? 2X Avg.Risk ??9.6 ?7.1 ? 3X Avg.Risk 23.4 ?? 11.0 Blood BLOOD SPECIMEN / Unknown Venipuncture / Unknown 07/05/2022 9:36 AM MACHINE TOOL ELECTRICIAN 07/05/2022 9:42 AM MACHINE TOOL ELECTRICIAN Narrative [facility] ([facility]) - 07/08/2022 12:06 AM MACHINE TOOL ELECTRICIAN Performed at: ??01 - [facility] [place] [address] [place] [address], [place], [place] ??[id number] Roller Coaster Engineer: Xavi Jones MD, Phone: ??[phone] Mar Lizama MD SEND OUTS [facility] ([facility]) [address] [place] [address], * XR MAMMO POLI BILAT SCREEN (05/18/2021 11:35 AM MACHINE TOOL ELECTRICIAN) Anatomical Region Laterality Modality BREASTS, Breast Left, Breast Right Bilateral Mammography Impressions 05/18/2021 3:51 PM MACHINE TOOL ELECTRICIAN ??There is no radiographic evidence for malignancy. ??Recommend annual mammograms. MAMMOGRAM ASSESSMENT: ??ACR 1 Negative PATIENTS: You will also receive a letter with your examination results in an easy to read format. ??If you have questions about your results, please contact your referring provider. Narrative 05/18/2021 3:51 PM MACHINE TOOL ELECTRICIAN For Patients: As a result of the Cures Act, medical imaging exams and procedure reports are released immediately into your electronic medical record. You may view this report before your referring provider. If you have questions, please contact your health care provider. XR MAMMO POLI BILAT SCREEN [[id number]] CLINICAL HISTORY: ??This is an asymptomatic 51 y.o. patient. INDICATION FOR EXAM: Mammogram Screening. TECHNIQUE: CC & MLO views were obtained. ??This study was evaluated with the assistance of Computer-Aided Detection. Breast Tomosynthesis was used in interpretation. COMPARISON FILM: Yes 08/26/19 [facility] 08/12/13 [facility] FINDINGS: ??The breasts are extremely dense, which lowers the sensitivity of mammography. There are no dominant masses, suspicious micro calcifications or areas of architectural distortion. Mar Lizama MD MAMMO * HPV HIGH RISK (05/18/2021 9:30 AM MACHINE TOOL ELECTRICIAN) TYPE 16 Negative Negative 05/24/2021 10:50 AM MACHINE TOOL ELECTRICIAN [facility] TYPE 18 Negative Negative 05/24/2021 10:50 AM MACHINE TOOL ELECTRICIAN [facility] OTHER HIGH RISK TYPES Negative Negative 05/24/2021 10:50 AM MACHINE TOOL ELECTRICIAN [facility] Other (Cervical) Non-Blood / Unknown 05/18/2021 9:30 AM MACHINE TOOL ELECTRICIAN 05/20/2021 10:29 AM MACHINE TOOL ELECTRICIAN Narrative [facility] - 05/24/2021 10:50 AM MACHINE TOOL ELECTRICIAN HPV types 16, 18, 31, 33, 35, 39, 45, 51, 52, 56, 58, 59, 66 and 68 DNA were undetectable or below the pre-set threshold. Methodology: Selam Marcos 4800 HPV Test Mar Lizama MD MICROBIOLOGY [facility] [address] [place] [address], from Last 3 Months or Most Recently Relevant to Health Maintenance Care Teams Facility Operations Manager Relationship Specialty Start Date End Date [place], [place] [address] [place] [address] PCP - General Family Practice 08/08/13
--- OUTSIDE RECORDS SUMMARY | 2023-11-29 06:30 | XMS_ITS | Referral Summary ---
Author Organization [facility] Address [address] [facility] [place] [address] Care Team Providers Care Board Attendant Name Role Phone Mar Lizama MD Primary Care Provider [phone] Allergies Active Allergy Reactions Criticality Noted Date [...] Comments Blood Pressure 148/100 07/04/2023 5:25 PM GLASSWORKER Pulse 89 07/04/2023 5:25 PM GLASSWORKER Temperature 36.8 ??C (98.3 ??F) 07/04/2023 1:20 PM CS T Respiratory Rate 18 07/04/2023 5:25 PM GLASSWORKER Oxygen Saturation 98% 07/04/2023 5:25 PM GLASSWORKER Inhaled Oxygen Concentration - - Weight 77.1 kg (170 lb) 07/01/2020 3:00 PM GLASSWORKER Height 162.6 cm (5' 4) 07/01/2020 3:00 PM GLASSWORKER Body Mass Index 29.18 07/01/2020 3:00 PM GLASSWORKER Plan of Treatment Not on file Medical Devices Implanted Type Area Warranty Coordinator Device Identifier Shelf Expiration Date Model / Serial / Lot Mirena Iud Implanted:Qty: 1 on 07/05/2020 N/A: Vagina KIRSTY 10/22/2022 [facility] [id number] / / [id number] Procedures Procedure Name Priority Date/Time Associated Diagnosis Comments BASIC METABOLIC PANEL STAT 07/04/2023 1:47 PM GLASSWORKER MA SCREENING BILATERAL W/ POLI Routine 05/18/2021 11:35 AM GLASSWORKER from Last 3 Months or Most Recently Relevant to Health Maintenance Results * (ABNORMAL) Basic metabolic panel (07/04/2023 1:47 PM GLASSWORKER) Sodium 142 135 - 145 mmol/L 07/04/2023 2:19 PM GLASS[facility]ER LAB[facility] Comment:Reference intervals for this test were updated on 03/20/2023 to more accurately reflect our healthy population. There may be differences in the flagging of prior results with similar values performed with this method. Interpretation of those prior results can be made in the context of the updated reference intervals. Potassium 3.5 3.4 - 5.3 mmol/L 07/04/2023 2:19 PM [facility] Chloride 105 98 - 107 mmol/L 07/04/2023 2:19 PM [facility] Carbon Dioxide (CO2) 26 22 - 29 mmol/L 07/04/2023 2:19 PM [facility] Anion Gap 11 7 - 15 mmol/L 07/04/2023 2:19 PM [facility] Urea Nitrogen 7.0 6.0 - 20.0 mg/dL 07/04/2023 2:19 PM [facility] Creatinine 0.59 0.51 - 0.95 mg/dL 07/04/2023 2:19 PM [facility] GFR Estimate >90 >60 mL/min/1. 73m2 07/04/2023 2:19 PM [facility] Calcium 9.2 8.6 - 10.0 mg/dL 07/04/2023 2:19 PM [facility] Glucose 107(H) 70 - 99 mg/dL 07/04/2023 2:19 PM [facility] Blood STRUCTURE OF RIGHT UPPER LIMB / Unknown Venipuncture / Unknown 07/04/2023 1:47 PM GLASSWORKER 07/04/2023 1:53 PM GLASSWORKER Ulises Rodriguez MD LAB - BLOOD ORDER DANIEL [facility] [address] (1st floor, no room number) [place] [address], [facility] [phone] from Last 3 Months or Most Recently Relevant to Health Maintenance Care Teams Board Attendant Relationship Specialty [place] [address] [place] [address] PCP - General Family Practice 04/21/13
--- OUTSIDE RECORDS SUMMARY | 2023-11-29 06:31 | XMS_ITS | Data Portability ---
Author Organization [facility] - MAILER APPRENTICE, [id number] Address [address] [place] [id number] Assessment No assessment recorded. Plan of Treatment Reminders Order Date Submit Date Provider Last Modified By Organization Details Last Modified Time Details Appointments None recorded. Lab None recorded. Referral None recorded. Procedures None recorded. Surgeries None recorded. Imaging US, transvagina l 2019 020 adiel [facility] [address] [place], [address] [place], [address], 0 22:37:53 US, pelvis 2019 020 [email or web address] [facility] [address] [place], [address] [place], [address], 0 18:50:24 US, transvagina l 2019 020 [email or web address] Not available 0 10:18:09 Medication Orders None recorded. Patient TargetsNo targets recorded. Patient InstructionsNo instructions recorded. Reason for Referral None Reported. Results Created Date Observation Date Name Description Value Unit Range Abnormal Flag LastModifiedBy Organization Detail LastModifiedTime 06/01/20 20 US, pelvi s No observ ation record ed. [email or web address] [facility] [address] [place] [address] [place], [address], 06/07/2020 10:08:39 06/02/20 20 US, trans vagin al No observ ation record ed. adiel [address], [place], [address], 06/20/2020 09:47:43 Result Notes None recorded. Procedures Surgical History Date Name Laterality Status Provider Name and Address Organization Details Recorded Time 0 Date of Last Pap Smear completed Jennyfer Woodson TERMED er[place], [place] - [facility] MAILER APPRENTICE 05/25/2020 17:38:17 ligation of bilateral fallopian tubes completed Not Available [facility] 01/29/2020 05:09:51 Imaging Results Imaging Date Name Status LastModified by Organization Details LastModified Time 06/01/2020 US, pelvis completed [email or web address] [facility] [address] [place] [address], [place], [address], 06/07/2020 10:08:39 06/02/2020 US, transvaginal completed adiel Johnson [address], [place], [address], 06/20/2020 09:47:43 Procedure Notes None recorded. Medical Equipment None Reported. Allergies Allergen ID Allergen Name Allergen Category Reaction Reaction Severity Criticality Documentation Date Start Date Code Code System Note Provider Name and Address Organization Details Recorded Time [id number] honey bee venom medicatio n Not available Not available Not available 05/26/2020 75762 7 RxNorm Jennyfer Woodson TERMED erik, [facility] APPR[facility] 0 14:40:18 Medications Name Sig Start Date [...] Updated DateTime 08/26/2019 29.35 kg/m2 162.4584 cm 88610.29 527 g 122 mm[Hg] 82 mm[Hg] Not Available [facility] 0 06:34:51 Date Recorded Body height Body mass index (BMI) Body weight Systolic blood pressure Diastolic blood pressure Provider Name and Address Organization Details Last Updated DateTime 05/26/2020 162.4584 cm 29.9 kg/m2 67202.35 g 140 mm[Hg] 84 mm[Hg] Jennyfer Woodson TERMED [facility] MAILER APPRENTICE 0 14:39:59 Date Recorded Body height Body mass index (BMI) Body weight Systolic blood pressure Diastolic blood pressure Provider Name and Address Organization Details Last Updated DateTime 06/01/2020 162.4584 cm 30.1 kg/m2 79172.66 g 122 mm[Hg] 70 mm[Hg] Lou Turnpatriciaom (TERMED) [facility] MAILER APPRENTICE 0 17:11:00 Date Recorded Body height Body mass index (BMI) Body weight Systolic blood pressure Diastolic blood pressure Provider Name and Address Organization Details Last Updated DateTime 07/20/2020 162.4584 cm 30.1 kg/m2 88132.66 g 136 mm[Hg] 78 mm[Hg] Lou Gilbertpatriciaom (TERMED) [facility] MAILER APPRENTICE 1 12:13:08 Social History Question Answer Notes LastModified by [employer] Details LastModified Time Tobacco Smoking Status Current Every Day Smoker Tobacco *Status: Current every day Not Available [facility] 02/02/2020 11:57:44 What Is Your Level Of Caffeine Consumption? None [facility]ine [email or web address] Information not available 02/02/2020 History Of Domestic Violence No Denies Any History Of Domestic [facility] Information not available 02/02/2020 Marital Status Information not available 02/02/2020 Are You Sexually Active? Yes Currently Sexually Active Information not available 02/02/2020 Sex: Female Functional Status Question Answer Note LastModified by [employer] Details LastModified Time What is your exercise [...] Encounter Closed Date Diagnosis/Indication Diagnosis SNOMED-CT Code [id number] CRISTAL AMOS MD [id number] [address] [address] 05/26/2020 14:30:35 05/26/2020 15:16:48 Menorrhagia [id number] CRISTAL AMOS MD [id number] [address] [address] 06/01/2020 16:37:22 06/01/2020 18:50:24 Menorrhagia [id number] CRISTAL AMOS MD [id number] [address] [address] 06/01/2020 17:00:24 06/02/2020 12:53:27 Menorrhagia [id number] CRISTAL AMOS MD [id number] [address] [address] 07/20/2020 11:56:21 07/21/2020 10:23:40 Menorrhagia [id number] Health Concerns Section Related Observation LastModified by Organization Detai ls LastModified Time None Recorded Concern Status LastModified by Organization Details LastModified Time None Recorded Advance Directives Directive None Recorded Payers Encounter Date Sequence Insurance Name Policy Number Policy Jesus Covered Member ID Jesus Member ID Guarantor Name 07/20/2020 1 PREFERREDONE (PPO) [id number] Shanti A Vandenheuvel [id number] Shanti A Vandenheuvel 06/01/2020 1 *SELF PAY* Nathan Rubinjose raul 06/01/2020 1 *SELF PAY* Nathan So Notes Date Note Type Note Provider Name [...] complaints? No. Other: ___[place] [id number] [facility] [address], [place], [address], [facility] - Premier MAILER APPRENTICE 05/29/2020 22:36:03 06/01/2020 text/html HPI Notes: [place] [id number] [facility] [address], [place], [address], [place] - [employer] MAILER APPRENTICE 06/01/2020 21:18:25 07/20/2020 text/html HPI Notes: Surge ry Date: 07/05/2020. Patient presents for her post-operative evaluation. Surgical procedure: Fractional D&C, operative hysteroscopy and insertion of Mirena IUD. Indication: Menorrhagia. Pathology findings: benign. The procedure was done by: Cristal Amos MD. She has no [place] [address] [facility],[address], [place], [address], [place] - [employer] MAILER APPRENTICE 07/20/2020 12:33:12 OBGyn Episode No OBEpisode recorded.
[2023-11-29] MEDS: LACTATED RINGERS 1000 ML 1,000 ML 100 ML IV (07:00)
[2023-11-29] MEDS: SODIUM CHLORIDE 0.9 % (FLUSH) 10 ML SYRINGE IVF (07:42)
[2023-11-29] MEDS: CEFAZOLIN 2 GM INJ IVP (07:58)
[2023-11-29] MEDS: BUPIVACAINE 0.25% 30 ML INJECTION (08:40)
--- NOTE | 2023-11-29 08:46 | P.ORPRC_ITS ---
Procedure Note Date of procedure: 11/29/23 Procedure: PREOPERATIVE DIAGNOSIS: Right knee medial meniscus tear POSTOPERATIVE DIAGNOSIS: Right knee medial meniscus tear NAME OF OPERATION: Right knee arthroscopic subtotal medial meniscectomy SURGEON: Matt Thomas MD HAND SEWER SHOES: Jennifer Pacheco PA-C ANESTHESIA: Spinal ESTIMATED BLOOD LOSS: 0 mL COMPLICATIONS: None SPECIMENS: None DRAINS: None PREOPERATIVE ANTIBIOTICS: Ancef 2 gram INDICATIONS: The patient is a 53-year-old with a history of right knee medial pain. MRI scan is consistent with a medial meniscus tear, medial compartment OA. Despite appropriate nonoperative management, including activity gilmer fication, antiinflammatories, [id number] pain medication, bracing, physical therapy, and injections they continue to have pain and disability. Operative intervention was offered. The risks, benefits and expected outcomes were discussed in detail. These included but were not limited to: Infection, bleeding, injury to blood vessel or nerve, venous thromboembolism. All questions were answered to their satisfaction. PROCEDURE: Spinal anesthesia was administered. The patient was placed supine on the operating room table. The right lower extremity was prepped and draped in the usual sterile fashion. The limb was exsanguinated with the Jose A bandage. The pneumatic tourniquet was inflated to 300 mmHg. A standard anterolateral portal was established. The arthroscope was introduce d. The working portal was established anteromedially. Diagnostic arthroscopy was performed with findings as follows: The suprapatellar pouch is normal. Articular surface on the patella is normal. Articular surface on the trochlea shows a small focal area of grade 1/2 change centrally. The medial gutter is normal. The medial compartment shows diffuse grade 3 change on the medial femoral condyle, focal grade 4 change on the medial tibial plateau. The medial meniscus has a complex degenerative tear at the junction of the midbody and anterior horn. There is a radial tear the goes from the leading edge to the capsule with an anteriorly based unstable flap. There is minimal undersurface horizontal cleavage tearing of the posterior horn. The notch shows the ACL to be intact. The lateral compartment shows normal articular cartilage on the lateral femoral condyle and lateral tibial plateau. The lateral meniscus is normal. The lateral gutter is normal. The undersurface of the posterior horn of the medial meniscus was debrided with the shaver. Likewise, the midbody and anterior horn were debrided with baskets and janice through both portals. This results in subtotal resection of the midbody and anterior horn, to the capsule. Unstable chondral flaps on the medial femoral condyle were debrided with the shaver through both portals, taken to a stable base. Arthroscopic instruments were removed, the portal sites were Steri-Stripped closed, the knee was infiltrated with 30 mL of 0.25% Marcaine without epinephrine. A dry dressing was applied, the tourniquet was released. Sponge and needle counts were correct x 2. The patient tolerated the procedure well. There were no apparent complications. They were carefully transferred to the hospital bed and taken to the posta nesthesia care unit in satisfactory condition. PLAN: The patient will be discharged to home. They may weightbear as tolerates. Range of motion will be unrestricted. They will follow up in the [facility] next week for a wound check. If at some point medial compartment painful symptoms become unbearable, she would be an excellent candidate for a medial unicompartmental arthroplasty.
--- NOTE | 2023-11-29 08:50 | W.ANESCHARGE ---
Anesthesia Charges Start Date/Time Anesthesia Start Date: 11/29/23 Anesthesia Start Time: 07:51 Stop Date/Time Anesthesia Stop Date: 11/29/23 Anesthesia Stop Time: 08:51
--- NOTE | 2023-11-29 09:21 | SUR.PHASEI ---
patient met discharge criteria per anesthesia
--- NOTE | 2023-11-29 09:45 | W.ANESCHARGE ---
Anesthesia Charges Start Date/Time Anesthesia Start Date: 11/29/23 Anesthesia Start Time: 07:51 Stop Date/Time Anesthesia Stop Date: 11/29/23 Anesthesia Stop Time: 08:51
== END 2023-11-29 10:20 | disposition home or self-care (01) ==
PROVIDERS: PCP Family Medicine; Visit Provider Orthopaedic Surgery
PROC: (CPT 29870; principal; 2023-11-29 08:15)
DX: M23.211 Derangement of anterior horn of medial meniscus due to old tear or injury, right knee (principal)
CPT/HCPCS: 29881; 01400; J0665; J0690; J1100; J1200; J1630; J1885; J2250; J2405; J2704; J3010; J7120

== ENCOUNTER 2023-12-03 11:30 | Outpatient (CLI) | payer OTHER, SELFPAY ==
--- NOTE | 2023-12-03 11:30 | CRLHL7_ITS ---
For Patients: As a result of the Century Cures Act, medical imaging exams and procedure reports are released immediately into your electronic medical record. You may view this report before your referring provider. If you have questions, please contact your health care provider. INDICATION: Right calf pain and swelling, meniscus repair 4 days prior. TECHNIQUE: Ultrasound venous duplex lower right extremity. Compression venous exam was performed using coyle-scale, color Doppler, and spectral Doppler imaging. COMPARISON: None. FINDINGS: Sonographic imaging demonstrates the right common femoral, deep femoral, superficial femoral, popliteal, posterior tibial and greater saphenous and the contralateral left common femoral veins to be fully compressible with normal color Doppler blood flow. Anechoic avascular fluid as the medial margin of the knee measuring 4.4 x 0.7 x 1.4 centimeters. This may represent a postoperative seroma. IMPRESSION: No evidence of deep venous thrombosis right lower extremity. Dictated by Anthony Villasenor MD @ 12/03/2023 12:37:10 PM (Electronically Signed)
--- OUTSIDE RECORDS SUMMARY | 2023-12-03 11:33 | XMS_ITS | Clinical Summary ---
Author Organization [facility] Address [place], [place] [address] Care Team Providers Care Pigment Presser Name Role Phone Mar Lizama MD Primary Care Provider [phone] Allergies Active Allergy Reactions Criticality Noted Date [...] Description 11/23/2023 7:50 AM CDT Preop Visit [facility] [address] [place] [address] EmbertMar MD Preoperative Exam (--6*6*24--Knee Procedure (Right)--[facility]--Chilango Salcedo MD.) 11/23/2023 Travel 10/26/2023 Orders Only [facility] Scanner 1 scan: (1-Ord) [place], MRI RT KNEE WO CON, 10/26/2023 10/26/2023 Orders Only [facility] Scanner 1 scan: (1-Ord) [facility], MRI OF THE RT KNEE, WITHOUT CONTRAST, [...] 4 3 Date Outcome GA Total Labor Labor//3rd Weight Sex Type Anes PTL Gladys A1 A5 Name Clin Para Para Para Last Filed Vital Signs [...] Body Mass Index 30.27 07/05/2022 8:45 AM BINDER FOLDER OPERATOR Plan of Treatment Health Maintenance Due Date Last Done Comments Pneumococcal series for age 6-64 (1 of 2 - PCV) 1977 HIV for age 15-65 1986 Hepatitis C screening for ag e 18-79 1989 Zoster (shingles) series for age 50+ (1 of 2) 2021 Mammogram for age 45-75 05/18/2022 05/18/20 21, 08/26/2019, 08/12/2013, Additional history exists COVID-19 vaccine series ( - 202224 season) 2023 BMI (ht and wt on [...] AND CHOL/HDL RATIO Routine 07/05/2022 9:36 AM BINDER FOLDER OPERATOR Routine general medical examination at a [facility] XR MAMMO POLI BILAT SCREEN Routine 05/18/2021 11:35 AM BINDER FOLDER OPERATOR Visit for screening mammogram HPV THIN PREP Routine 05/18/2021 9:30 AM BINDER FOLDER OPERATOR Cervical cancer screening from Last 3 Months or Most Recently Relevant to Health Maintenance Results * SCAN-MRI INTERPRETATION (10/26/2023 12:00 AM CDT) Only the most recent of2 resultswithin the time period is included. Anatomical Region Laterality Modality Other Scanner OTHER * SCAN-COLONOSCOPY (09/22/2022 8:00 AM CDT) Narrative Procedure Note Vince Knapp MD - 09/22/2022 6:54 AM CDT [facility] [address], [address], [place] [address] Patient Name: Shanti So Gender: Female Exam Date: 09/22/2022 Visit Number: [id number] Age: 52 Years Date of : 1970 Attending MD: Vince Knapp MD Medical Record#: [id number] Procedure: Colonoscopy Indications: Previous adenomatous polyp(s) Referring [...] of the colorectum is defined by the [place] Collegeof Gastroenterology (ACG) as an adenoma that is 1 cm or more in size,contains an appreciable villous component, or has high grade dysplasia(Enrike JH; Polyp Guideline: Diagnosis, Treatment, and Surveillance forPatients with Colorectal Polyps. Am J [id number];95(11):9671-4818). This polyp qualifies as such. Patients withadvanced adenomas are at increased risk for synchronous and metachronousadditional advanced adenomas. Appropriate follow-up is suggested. MICROSCOPIC A: Performed B: Performed C: Performed D: Performed E: Performed Electronically signed by: Lj Hendrickson MD Interpreted at [facility], [address] [place] [address] Orders Instruction(s)/Education: Instruction/Education Timeframe Assessment Colon Cancer [...] PANEL AND CHOL/HDL RATIO (07/05/2022 9:36 AM BINDER FOLDER OPERATOR) Cholesterol, Total 229(H) 100 - 199 mg/dL 07/08/2022 12:06 AM [facility] Triglycerides 160(H) 0 - 149 mg/dL 07/08/2022 12:06 AM [facility] ([facility] HDL Cholesterol 36(L) >39 mg/dL 12:06 AM [facility] VLDL Cholesterol Jake 29 5 - 40 mg/dL 07/08/2022 12:06 AM [facility] LDL Chol Calc ([facility]) 164(H) 0 - 99 mg/dL 07/08/2022 12:06 AM [facility] T. Chol/HDL Ratio 6.4(H) 0.0 - 4.4 ratio 07/08/2022 12:06 AM [facility]) Comment: ?T. Chol/HDL Ratio ?Men ??Women ?1/2 Avg.Risk ??3.4 ?3.3 ?Avg.Risk ??5.0 ?4.4 ? 2X Avg.Risk ??9.6 ?7.1 ? 3X Avg.Risk 23.4 ?? 11.0 Blood BLOOD SPECIMEN / Unknown Venipuncture / Unknown 07/05/2022 9:36 AM BINDER FOLDER OPERATOR 07/05/2022 9:42 AM BINDER FOLDER OPERATOR Narrative [facility] ([facility]) - 07/08/2022 12:06 AM BINDER FOLDER OPERATOR Performed at: ??01 - [facility] [place] [address] [place] [address], [place], [place] ??[id number] Basketball Referee: Xavi Jones MD, Phone: ??[phone] Mar Aura Hett MD SEND OUTS [facility] ([facility]) [facility] [place] [address], * XR MAMMO POLI BILAT SCREEN (05/18/2021 11:35 AM BINDER FOLDER OPERATOR) Anatomical Region Laterality Modality BREASTS, Breast Left, Breast Right Bilateral Mammography Impressions 05/18/2021 3:51 PM BINDER FOLDER OPERATOR ??There is no radiographic evidence for malignancy. ??Recommend annual mammograms. MAMMOGRAM ASSESSMENT: ??ACR 1 Negative PATIENTS: You will also receive a letter with your examination results in an easy to read format. ??If you have questions about your results, please contact your referring provider. Narrative 05/18/2021 3:51 PM BINDER FOLDER OPERATOR For Patients: As a result of the Cures Act, medical imaging exams and procedure reports are released immediately into your electronic medical record. You may view this report before your referring provider. If you have questions, please contact your health care provider. XR MAMMO POLI BILAT SCREEN [[id number]] CLINICAL HISTORY: ??This is an asymptomatic 51 y.o. patient. INDICATION FOR EXAM: Mammogram Screening. TECHNIQUE: CC & MLO views were obtained. ??This study was evaluated with the assistance of Computer-Aided Detection. Breast Tomosynthesis was used in interpretation. COMPARISON FILM: Yes 08/26/19 [facility] 08/12/13 [facility] FINDINGS: ??The breasts are extremely dense, which lowers the sensitivity of mammography. There are no dominant masses, suspicious micro calcifications or areas of architectural distortion. Mar Lizama MD MAMMO * HPV HIGH RISK (05/18/2021 9:30 AM BINDER FOLDER OPERATOR) TYPE 16 Negative Negative 05/24/2021 10:50 AM BINDER FOLDER OPERATOR [facility] TYPE 18 Negative Negative 05/24/2021 10:50 AM BINDER FOLDER OPERATOR [facility] OTHER HIGH RISK TYPES Negative Negative 05/24/2021 10:50 AM BINDER FOLDER OPERATOR [facility] Other (Cervical) Non-Blood / Unknown 05/18/2021 9:30 AM BINDER FOLDER OPERATOR 05/20/2021 10:29 AM BINDER FOLDER OPERATOR Narrative [facility] - 05/24/2021 10:50 AM BINDER FOLDER OPERATOR HPV types 16, 18, 31, 33, 35, 39, 45, 51, 52, 56, 58, 59, 66 and 68 DNA were undetectable or below the pre-set threshold. Methodology: Selam Marcos 4800 HPV Test Mar Lizama MD MICROBIOLOGY [facility] [address] [place] [address], from Last 3 Months or Most Recently Relevant to Health Maintenance Care Teams Pigment Presser Relationship Specialty [place] [address] [place] [address] PCP - General Family Practice 08/08/13
--- OUTSIDE RECORDS SUMMARY | 2023-12-03 11:33 | XMS_ITS | Clinical Summary ---
Author Organization [facility] Address [address] [facility] [place] [address] Care Team Providers Care Assistant Department Manager Name Role Phone Mar Lizama MD Primary Care Provider [phone] Allergies Active Allergy Reactions Criticality Noted Date [...] Comments Blood Pressure 148/100 07/04/2023 5:25 PM SHANK BREAKER Pulse 89 07/04/2023 5:25 PM SHANK BREAKER Temperature 36.8 ??C (98.3 ??F) 07/04/2023 1:20 PM CS T Respiratory Rate 18 07/04/2023 5:25 PM SHANK BREAKER Oxygen Saturation 98% 07/04/2023 5:25 PM SHANK BREAKER Inhaled Oxygen Concentration - - Weight 77.1 kg (170 lb) 07/01/2020 3:00 PM SHANK BREAKER Height 162.6 cm (5' 4) 07/01/2020 3:00 PM SHANK BREAKER Body Mass Index 29.18 07/01/2020 3:00 PM SHANK BREAKER Plan of Treatment Health Maintenance Due Date [...] this topic Medical Devices Implanted Type Area Food Court Team Member Device Identifier Shelf Expiration Date Model / Serial / Lot Mirena Iud Implanted:Qty: 1 on 07/05/2020 N/A: Vagina KIRSTY 10/22/[address] [facility] [id number] / / [id number] Procedures Procedure Name Priority Date/Time Associated Diagnosis Comments BASIC METABOLIC PANEL STAT 07/04/2023 1:47 PM SHANK BREAKER MA SCREENING BILATERAL W/ POLI Routine 05/18/2021 11:35 AM SHANK BREAKER from Last 3 Months or Most Recently Relevant to Health Maintenance Results * (ABNORMAL) Basic metabolic panel (07/04/2023 1:47 PM SHANK BREAKER) Sodium 142 135 - 145 mmol/L 07/04/2023 2:19 PM [facility] Comment:Reference intervals for this test were updated on 03/20/2023 to more accurately reflect our healthy population. There may be differences in the flagging of prior results with similar values performed with this method. Interpretation of those prior results can be made in the context of the updated reference intervals. Potassium 3.5 3.4 - 5.3 mmol/L 07/04/2023 2:19 PM [facility] Chloride 105 98 - 107 mmol/L 07/04/2023 2:19 PM [facility] Carbon Dioxide (CO2) 26 22 - 29 mmol/L 07/04/2023 2:19 PM [facility] Anion Gap 11 7 - 15 mmol/L 07/04/2023 2:19 PM [facility] Urea Nitrogen 7.0 6.0 - 20.0 mg/dL 07/04/2023 2:19 PM [facility] Creatinine 0.59 0.51 - 0.95 mg/dL 07/04/2023 2:19 PM [facility] GFR Estimate >90 >60 mL/min/1. 73m2 07/04/2023 2:19 PM [facility] Calcium 9.2 8.6 - 10.0 mg/dL 07/04/2023 2:19 PM [facility] Glucose 107(H) 70 - 99 mg/dL 07/04/2023 2:19 PM [facility] Blood STRUCTURE OF RIGHT UPPER LIMB / Unknown Venipuncture / Unknown 07/04/2023 1:47 PM SHANK BREAKER 07/04/2023 1:53 PM SHANK BREAKER Ulises Rodriguez MD LAB - BLOOD ORDER [facility] [address] Lab (1st floor, no room number) [place] [address], [facility] [phone] from Last 3 Months or Most Recently Relevant to Health Maintenance Care Teams Assistant Department Manager Relationship Specialty [place] [address] [place] [address] PCP - General Family Practice 04/21/13
--- OUTSIDE RECORDS SUMMARY | 2023-12-03 11:33 | XMS_ITS | Data Portability ---
Author Organization [facility] SAP SOLUTION MANAGER CONSULTANT, [id number] Address [address] [place] [id number] Assessment No assessment recorded. Plan of Treatment Reminders Order Date Submit Date Provider Last Modified By Organization Details Last Modified Time Details Appointments None recorded. Lab None recorded. Referral None recorded. Procedures None recorded. Surgeries None recorded. Imaging US, transvagina l 2019 020 adiel [facility] [place], [address] [place], [address], 0 22:37:53 US, pelvis 2019 020 [email or web address] [facility] [place], [address] [place], [address], 0 18:50:24 US, transvagina l 2019 020 [email or web address] Not available 0 10:18:09 Medication Orders None recorded. Patient TargetsNo targets recorded. Patient InstructionsNo instructions recorded. Reason for Referral None Reported. Results Created Date Observation Date Name Description Value Unit Range Abnormal Flag LastModifiedBy Organization Detail LastModifiedTime 06/01/20 20 US, pelvi s No observ ation record ed. [email or web address] [facility] [place] [address] [place], [address], 06/07/2020 10:08:39 06/02/20 20 US, trans vagin al No observ ation record ed. adiel Johnson [address], [place], [address], 06/20/2020 09:47:43 Result Notes None recorded. Procedures Surgical History Date Name Laterality Status Provider Name and Address Organization Details Recorded Time 0 Date of Last Pap Smear completed Jennyfer Woodson TERMED erik, [place] - [facility] [employer] SOLUTION MANAGER CONSULTANT 05/25/2020 17:38:17 ligation of bilateral fallopian tubes completed Not Available [facility] 01/29/2020 05:09:51 Imaging Results Imaging Date Name Status LastModified by Organization Details LastModified Time 06/01/2020 US, pelvis completed [email or web address] [facility] [place] [address], [place], [address], 06/07/2020 10:08:39 06/02/2020 US, transvaginal completed adiel Johnson [address], [place], [address], 06/20/2020 09:47:43 Procedure Notes None recorded. Medical Equipment None Reported. Allergies Allergen ID Allergen Name Allergen Category Reaction Reaction Severity Criticality Documentation Date Start Date Code Code System Note Provider Name and Address Organization Details Recorded Time [id number] honey bee venom medicatio n Not available Not available Not available 05/26/2020 29381 7 RxNorm Jennyfer Woodson TERMED erik, [facility] MANAGER CONSULT[facility] 0 14:40:18 Medications Name Sig Start Date [...] Updated DateTime 08/26/2019 29.35 kg/m2 162.4584 cm 36211.29 527 g 122 mm[Hg] 82 mm[Hg] Not Available [facility] 0 06:34:51 Date Recorded Body height Body mass index (BMI) Body weight Systolic blood pressure Diastolic blood pressure Provider Name and Address Organization Details Last Updated DateTime 05/26/2020 162.4584 cm 29.9 kg/m2 77407.35 g 140 mm[Hg] 84 mm[Hg] Jennyfer Woodson TERMED [facility] SAP SOLUTION MANAGER CONSULTANT 0 14:39:59 Date Recorded Body height Body mass index (BMI) Body weight Systolic blood pressure Diastolic blood pressure Provider Name and Address Organization Details Last Updated DateTime 06/01/2020 162.4584 cm 30.1 kg/m2 49319.66 g 122 mm[Hg] 70 mm[Hg] Lou Turnpatriciaom (TERMED) [facility] SAP SOLUTION MANAGER CONSULTANT 0 17:11:00 Date Recorded Body height Body mass index (BMI) Body weight Systolic blood pressure Diastolic blood pressure Provider Name and Address Organization Details Last Updated DateTime 07/20/2020 162.4584 cm 30.1 kg/m2 40171.66 g 136 mm[Hg] 78 mm[Hg] Lou Gilbertpatriciaom (TERMED) [facility] SAP SOLUTION MANAGER CONSULTANT 1 12:13:08 Social History Question Answer Notes LastModified by [employer] Details LastModified Time Tobacco Smoking Status Current Every Day Smoker Tobacco *Status: Current every day Not Available [facility] 02/02/2020 11:57:44 What Is Your Level Of Caffeine Consumption? None Caffeine helen keller Information not available 02/02/2020 History Of Domestic Violence No Denies Any History Of Domestic [facility] Information not available 02/02/2020 Marital Status Information not available 02/02/2020 Are You Sexually Active? Yes Currently Sexually Active Information not available 02/02/2020 Sex: Female Functional Status Question Answer Note LastModified by [employer]Ch[employer] Details LastModified Time What is your exercise [...] Encounter Closed Date Diagnosis/Indication Diagnosis SNOMED-CT Code [id number] CRISTAL AMOS MD [id number] [address] [address] 05/26/2020 14:30:35 05/26/2020 15:16:48 Menorrhagia [id number] CRISTAL AMOS MD [id number] [address] [address] 06/01/2020 16:37:22 06/01/2020 18:50:24 Menorrhagia [id number] CRISTAL AMOS MD [id number] [address] [address] 06/01/2020 17:00:24 06/02/2020 12:53:27 Menorrhagia [id number] CRISTAL AMOS MD [id number] [address] [address] 07/20/2020 11:56:21 07/21/2020 10:23:40 Menorrhagia [id number] Health Concerns Section Related Observation LastModified by Organization Detai ls LastModified Time None Recorded Concern Status LastModified by Organization Details LastModified Time None Recorded Advance Directives Directive None Recorded Payers Encounter Date Sequence Insurance Name Policy Number Policy Jesus Covered Member ID Jesus Member ID Guarantor Name 07/20/2020 1 P[employer]ERREDONE (PPO) [id number] Shanti A Vandenheuvel [id number] Shanti A Vandenheuvel 06/01/2020 1 *SELF PAY* [...] complaints? No. Other: ___[place] [id number] [facility] [address], [place], [address], [facility] - [employer] SAP SOLUTION MANAGER CONSULTANT 05/29/2020 22:36:03 06/01/2020 text/html HPI Notes: [place] [address] [facility] [address], [place], [address], [place] - [employer] SAP SOLUTION MANAGER CONSULTANT 06/01/2020 21:18:25 07/20/2020 text/html HPI Notes: Surge ry Date: 07/05/2020. Patient presents for her post-operative evaluation. Surgical procedure: Fractional D&C, operative hysteroscopy and insertion of Mirena IUD. Indication: Menorrhagia. Pathology findings: benign. The procedure was done by: Cristal Amos MD. She has no [place] [id number] [facility],[address], [place], [address], [place] - [employer] SOLUTION MANAGER CONSULTANT 07/20/2020 12:33:12 OBGyn Episode No OBEpisode recorded.
--- OUTSIDE RECORDS SUMMARY | 2023-12-03 11:33 | XMS_ITS | Referral Summary ---
Author Organization [place] Address [address] [facility] [address] Care Team Providers Care Bookmobile Librarian Name Role Phone Mar Lizama MD Primary Care Provider [phone] Allergies Active Allergy Reactions Criticality Noted Date [...] Comments Blood Pressure 148/100 07/04/2023 5:25 PM TRANSPORTATION SPECIALIST Pulse 89 07/04/2023 5:25 PM TRANSPORTATION SPECIALIST Temperature 36.8 ??C (98.3 ??F) 07/04/2023 1:20 PM CS T Respiratory Rate 18 07/04/2023 5:25 PM TRANSPORTATION SPECIALIST Oxygen Saturation 98% 07/04/2023 5:25 PM TRANSPORTATION SPECIALIST Inhaled Oxygen Concentration - - Weight 77.1 kg (170 lb) 07/01/2020 3:00 PM TRANSPORTATION SPECIALIST Height 162.6 cm (5' 4) 07/01/2020 3:00 PM TRANSPORTATION SPECIALIST Body Mass Index 29.18 07/01/2020 3:00 PM TRANSPORTATION SPECIALIST Plan of Treatment Not on file Medical Devices Implanted Type Area Professional Builder Device Identifier Shelf Expiration Date Model / Serial / Lot Mirena Iud Implanted:Qty: 1 on 07/05/2020 N/A: Vagina KIRSTY 10/22/2022 [facility] [id number] / / [id number] Procedures Procedure Name Priority Date/Time Associated Diagnosis Comments BASIC METABOLIC PANEL STAT 07/04/2023 1:47 PM TRANSPORTATION SPECIALIST MA SCREENING BILATERAL W/ POLI Routine 05/18/2021 11:35 AM TRANSPORTATION SPECIALIST from Last 3 Months or Most Recently Relevant to Health Maintenance Results * (ABNORMAL) Basic metabolic panel (07/04/2023 1:47 PM TRANSPORTATION SPECIALIST) Sodium 142 135 - 145 mmol/L 07/04/2023 2:19 PM TRANSPORTATION SPECIALIST [facility] Comment:Reference intervals for this test were updated on 03/20/2023 to more accurately reflect our healthy population. There may be differences in the flagging of prior results with similar values performed with this method. Interpretation of those prior results can be made in the context of the updated reference intervals. Potassium 3.5 3.4 - 5.3 mmol/L 07/04/2023 2:19 PM [facility] Chloride 105 98 - 107 mmol/L 07/04/2023 2:19 PM [facility] Carbon Dioxide (CO2) 26 22 - 29 mmol/L 07/04/2023 2:19 PM [facility] Anion Gap 11 7 - 15 mmol/L 07/04/2023 2:19 PM [facility] Urea Nitrogen 7.0 6.0 - 20.0 mg/dL 07/04/2023 2:19 PM [facility] Creatinine 0.59 0.51 - 0.95 mg/dL 07/04/2023 2:19 PM [facility] GFR Estimate >90 >60 mL/min/1. 73m2 07/04/2023 2:19 PM [facility] Calcium 9.2 8.6 - 10.0 mg/dL 07/04/2023 2:19 PM [facility] Glucose 107(H) 70 - 99 mg/dL 07/04/2023 2:19 PM [facility] Blood STRUCTURE OF RIGHT UPPER LIMB / Unknown Venipuncture / Unknown 07/04/2023 1:47 PM TRANSPORTATION SPECIALIST 07/04/2023 1:53 PM TRANSPORTATION SPECIALIST Ulises Rodriguez MD LAB - BLOOD ORDER DANIEL [facility] [address] Lab (1st floor, no room number) [place] [address], [facility] [phone] from Last 3 Months or Most Recently Relevant to Health Maintenance Care Teams Bookmobile Librarian Relationship Specialty [place] [address] [place] [address] PCP - General Family Practice 04/21/13
== END 2023-12-03 11:31 | disposition home or self-care (01) ==
PROVIDERS: PCP Family Medicine; Visit Provider Orthopaedic Surgery
DX: M79.89 Other specified soft tissue disorders (principal); Z98.890 Other specified postprocedural states; Z87.828 Personal history of other (healed) physical injury and trauma
CPT/HCPCS: 93971

== ENCOUNTER 2025-03-24 11:20 | Emergency (ER) | payer OTHER, SELFPAY ==
--- OUTSIDE RECORDS SUMMARY | 2022-09-22 03:01 | XMS_ITS | Continuity of Care Document ---
Author Organization [facility] Address [address] [address] [place] [address] Phone Care Team Providers Care Ibm Mainframe Systems Programmer Name Role Phone Christina Reardon CRNA Unavailable Unavailabl e Allergies, Adverse Reactions, Alerts Substance Reaction Status Criticality No Known Allergies Active No Inform ation bee venom protein (honey bee) Active No Information Medications Medication Instructions Dosage Effective Dates (start - stop) Status Comments amlodipine 2.5 mg tablet take 1 tablet by oral route every day 2.5 MG - Active Estroven Complete Menopause Relief 4 mg tablet - Active multivitamin tablet take 1 Tablet by Oral route every day 1 Tablet - Active Vitamin D3 4,000 unit capsule take 1 Capsule by Oral route every day - Active ibuprofen 600 mg tablet take 1 tablet by Oral route every day PRN 600 MG - Active Calcium 600 + D(3) 600 mg (1,500 mg)-400 unit tablet take 1 Tablet by oral route once 1 Tablet - No Longer Active Procedures Procedure Date Colonoscopy Flex; W/remov Les- 23 Level Iv-surg Path Gross/micro 23 Colonoscopy Flex; W/remov Les- 15 Colonoscopy Flex; W/bx 1/mx Level Iv-surg Path Gross/micro 15 Offic/outpt E&m [facility] [place] Routine Serum Collection Advance Directives Directive Yes / No Effective Date File Name No Information Encounters Encounter Description Practice Location Reason(s) For Visit Diagnoses Date Provider Providers Copied on Encounter [facility], [address] [address], [place], [place], [id number], [place] tel:[phone] [facility] No Information 3 Alexys BATCH WEIGHER Christina. [address] [facility], [facility] [address], [place], [place], [id number], [place]. tel:[phone] Referring Provider: Vince Knapp MD, [address] [facility] [address], [place], [address] . tel:[phone] [facility], [address] [address], [place], [place], [address], [place] tel:[phone] [facility] GI Symptoms or Concerns (chief complaint) Colorectal polypsDiverticul osis of colon without diverticulitisHe morrhoids, internalEncounte r for screening for malignant neoplasm of colonPersonal history of colonic polypsBenign neoplasm of cecumBenign neoplasm of ascending colonBenign neoplasm of ascending colonBenign neoplasm of cecumPersonal history of colonic polyps 3 Ra Clarke. [address] [facility], [facility] [address], [place], [place], [id number], [place]. tel:[phone] Referring [place]: [place], [address] [place], [address]. tel:[phone] [facility], [address] [address], [place], [place], [address], [place] tel:[phone] No Information 3 No Information Referring [place]: [place], [address] [place], [address]. tel:[phone] [facility], [address] [address], [place], [place], [address], [place] tel:[phone] [facility] Personal History Colon PolypsPersonal history of colonic polyps 5 Pedro Cruz. [address] [facility], [facility] [address], [place], [place], [address], [place]. tel:[phone] [facility], [address] [address], [place], [address], [place] tel:[phone] [facility] HemorrhoidsDiver ticulosis of colonColon polypRectal Polyp/BenignBeni gn Neoplasm ColonHemorrhoids Diverticulosis Of Colon 5 Pedro Cruz. [facility] [address], [id number], . tel:[phone] Referring [place]: [place], [address] [place], [address]. tel:[phone] Offic/outpt E&m [facility], [address] [address], [place], [place], [id number], [place] tel:[phone] [facility] GI Symptoms or Concerns (chief complaint) Constipation UnspecifiedLLQ PainRectal Bleed/BRBPRDieta ry Surveil/counselE lev Bl Pres W/o Hypertn 4 Atilio Toney. [facility] [address], [id number], [place]. [phone] Referring [place]: [place], [address] [place], [address]. tel:[phone] Family History Family Member Type Diagnosis Age At Onset Mother Problem (finding) gallbladder disease Father Problem (finding) Cancer, basal cell Mother Problem (finding) Cancer, brain Mother Problem (finding) Cancer, liver Son Problem (finding) Alive and well Mother Problem (finding) malignant neop lasm of lung (Cause Of ) Father Problem (finding) Cancer, thyroid Sister Problem (finding) malignant neoplasm of t hyroid Father Problem (finding) Colon polyps Brother Problem (finding) Alive and well Father Problem (finding) diverticulitis of colon Father Problem (finding) Cancer, skin Father Problem (finding) Cancer, lung Sister Problem (finding) Cancer, uterine Immunizations Vaccine Date Status Comments Afluria Qd administered Note: [facility] bi-directional interface ; Source: Other Registry tetanus and diphtheria toxoi ds, adsorbed, preservative free, for adult use (5 Lf of tetanus toxoid and 2 Lf of diphtheria toxoid) administered Note: [facility] bi-direct ional interface ; Source: Other Registry Afluria Qd administered Note: M [facility] bi-directional interface ; Source: Other Registry Engerix-B administered Note: [facility] bi-d irectional interface ; Source: Other Registry Engerix-B administered Note: [facility] bi-d irectional interface ; Source: Other Registry tetanus toxoid, reduced diphtheria toxoid, and acellular pertussis vaccine, adsorbed administered Note: [facility] b i-directional interface ; Source: Other Registry Engerix-B administered Note: [facility] bi-d irectional interface ; Source: Other Registry Payers Payer name Insurance type Covered libertarian ID Authoriza tion(s) No Information Social History Type Description Quantity Date Captured Comments Sex Female Smoking Status No Information Chief Complaint And Reason For Visit No Information Reason For Referral Reason For Referral No Information Plan Of Treatment Date Type Action Status Goal Lifestyle education regardin g diet completed History Of Present Illness Encounter Date Complaint History Of Prese nt Illness GI Symptoms or Concerns GI Symptoms or Concerns The mu ent is a 44-year-old female seen for evaluation of one-month history of intermittent left lower quadrant abdominal pain as well as bright red blood per rectum.The patient reports a lifelong history of constipation. She indicates she typically has two bowel movements per week which are hard. She does state that in the last of couple of weeks her bowels had become a little more regular such that she is having four to five soft stools per week without change in medication or diet. She does report one episode of bright red blood per rectum. In addition, she complains of intermittent left lower quadrant crampy pain which she rates as a 5/10. The pain typically decreases following a bowel movement. She does say in the last few days symptoms have been more mild and less bothersome. She does take ibuprofen about once per week.Evaluation through her primary care physician included a normal comprehensive panel with a normal albumin and normal LFTs, normal amylase, daphnie Functional Status Date Functional Assessmen t No Information Instructions Date Instruction Additional Infor redd Colon Cancer Prevention Related to Colorectal polyps Colon Polyps Related to Color ectal polyps Hemorrhoids Related to Color ectal polyps Diverticulosis/Diverticulitis Re lated to Colorectal polyps High Fiber Diet Related to Color ectal polyps Hemorrhoids Related to Hemor rhoids High Fiber Diet Related to Hemor rhoids Hemorrhoid Banding Related to He morrhoids Diverticulosis/Diverticulitis Re lated to Hemorrhoids Colon Cancer Prevention Related to Hemorrhoids Colon Polyps Related to Hemor rhoids 1. colonoscopy with double prep2. gradual increase in fiber, fiber supplement3. miralax as needed4. sprue serologies Related to Rectal Bleed/BRBPR High Fiber Diet Related to Recta l Bleed/BRBPR Colonoscopy Related to Recta l Bleed/BRBPR Lifestyle education regarding di et Related to Dietary surveillance and counseling Assessments Type Assessment Date No Information Patient Care Teams Name Effective Dates (start - stop) Status Members No Information
--- OUTSIDE RECORDS SUMMARY | 2022-09-22 03:01 | XMS_ITS | Continuity of Care Document ---
Author Organization [facility] Address [address] [address] [place] [address] Phone Care Team Providers Care Assistant Analyst Name Role Phone Christina Reardon CRNA Unavailable [...] Iv-surg Path Gross/micro 15 Offic/outpt E&m [facility] [place] Routine Serum Collection Advance Directives Directive Yes / No Effective Date File Name No Information Encounters Encounter Description Practice Location Reason(s) For Visit Diagnoses Date Provider Providers Copied on Encounter [facility], [address] [address], [place], [place], [id number], [place] tel:[phone] [facility] No Information 3 Alexys PROCESS STEWARD Christina. [address] [facility], [facility] [address], [place], [place], [id number], [place]. tel:[phone] Referring Provider: Vince Knapp MD, [address] [facility] [address], [place], [address] . tel:[phone] [facility], [address] [address], [place], [place], [id number], [place] tel:[phone] [facility] GI Symptoms or Concerns (chief complaint) Colorectal polypsDiverticul osis of colon without diverticulitisHe morrhoids, internalEncounte r for screening for malignant neoplasm of colonPersonal history of colonic polypsBenign neoplasm of cecumBenign neoplasm of ascending colonBenign neoplasm of ascending colonBenign neoplasm of cecumPersonal history of colonic polyps 3 Ra Clarke. [address] [facility], [facility] [address], [place], [place], [id number], [place]. tel:[phone] Referring [place]: [place], [address] [place], [address]. tel:[phone] [facility], [address] [address], [place], [place], [address], [place] tel:[phone] No Information 3 No Information Referring [place]: [place], [address] [place], [address]. tel:[phone] [facility], [address] [address], [place], [place], [address], [place] tel:[phone] [facility] Personal History Colon PolypsPersonal history of colonic polyps 5 Pedro Cruz. [address] [facility], [facility] [address], [place], [place], [address], [place]. tel:[phone] [facility], [address] [address], [place], [address], [place] tel:[phone] [facility] HemorrhoidsDiver ticulosis of colonColon polypRectal Polyp/BenignBeni gn Neoplasm ColonHemorrhoids Diverticulosis Of Colon 5 Pedro Cruz. [facility] [address], [id number], . tel:[phone] Referring [place]: [place], [address] [place], [address]. tel:[phone] Offic/outpt E&m [facility], [address] [address], [place], [place], [id number], [place] tel:[phone] [facility] GI Symptoms or Concerns (chief complaint) Constipation UnspecifiedLLQ PainRectal Bleed/BRBPRDieta ry Surveil/counselE lev Bl Pres W/o Hypertn 4 Atilio Toney. [facility] [address], [id number], [place]. [phone] Referring [place]: [place], [address] [place], [address]. tel:[phone] Family History Family Member Type Diagnosis Age [...]
--- OUTSIDE RECORDS SUMMARY | 2025-03-24 11:22 | XMS_ITS | Clinical Summary ---
Author Organization [facility] Address [address] [place] [address] Care Team Providers Care Decorator Store Name Role Phone Mar Lizama MD Primary Care Provider [phone] Allergies Active Allergy Reactions Criticality Noted Date Comments Venom-Honey Bee *Unknown 12/06/2020 Lisinopril-Hydrochlorothiazide Rash Low 07/01 Medications hydrocortisone (ANUSOL-HC) 2.5 % rectal creamIndications: Hemorrhoids, external Apply topically to affected area(s) three times daily. 28 g 05/23/20 22 Active rhubarb root extract (Estroven Cmplt Menopause Rlf) 4 mg tab 09/23/19 23 Active medication order composer Mirena placed 06/2020 for menorrhagia. Active amLODIPine (NORVASC) 2.5 mg tabletIndications :Essential (primary) hypertension Take 1 Tablet (2.5 mg) by mouth once daily. 100 Tablet 3 03/20/20 25 Active atorvastatin (LIPITOR) 10 mg tabletIndications :Mixed hyperlipidemia Take 1 Tablet (10 mg) by mouth at bedtime. 100 Tablet 3 03/20/20 25 Active estradioL (ESTRACE) 0.01% (0.1 mg/g) vaginal creamIndications: Vaginal dryness Apply 1 gm intravaginally nightly for 2 weeks then 2x/week thereafter. 42.5 g 3 03/20/20 25 Active SUMAtriptan (IMITREX) 50 mg tablet Take 50 mg by mouth 2 times daily if needed. Give at minimum 2hrs apart. Max Dose: 200mg per 24hrs. 025 Disconti nued(*Harpreet walls states no longer taking) amLODIPine (NORVASC) 2.5 mg tabletIndications :Essential (primary) hypertension Take 1 Tablet (2.5 mg) by mouth once daily. 90 Tablet 01/08/20 25 025 Disconti nued(Reo rder (E-cance l not sent)) atorvastatin (LIPITOR) 10 mg tabletIndications :Mixed hyperlipidemia TAKE 1 TABLET (10 MG) BY MOUTH AT BEDTIME. 90 Tablet 01/09/20 25 025 Disconti nued(Reo rder (E-cance l not sent)) meloxicam 15 mg tabletIndications :Acute pain of both knees Take 1 Tablet (15 mg) by mouth once daily. 14 Tablet 03/03/20 25 025 Disconti nued(*Pa titi states no longer taking) Active Problems Problem Noted Date Diagnosed Date Pap smear for cervical cancer screening 04/25/20 21 Overview (06/16/2021): 04/2021 NIL/HPV negative. Plan: Pap/HPV due 04/2026 Essential (primary) hypertension 11/01/2020 Hyperopia of both eyes with astigmatism and pres byopia 04/13/2020 HTN (hypertension) Encounters Date Type Department Care Team Description 03/20/2025 12:00 PM CDT Office Visit [facility] [address] [place] [address] Mar Lizama MD Physical 03/20/2025 Travel 03/03/2025 2:40 PM CDT Office Visit [facility] [address] [place] [address] Shagufta Carbajal MD Occ Med (Bilateral knees, DOI 03/02/2025) 03/03/2025 Travel 01/06/2025 Refill [facility] [address] [place] [address] Mar Lizama MD Refill Request (Atorvastatin) 01/05/2025 Refill [facility] [address] [place] [phone] Mar Lizama MD Refill Request (Amlodipine) from Last 3 Months Immunizations Immunization Administration Dates Next Due Hepatitis B (Adult) [...] Problems Sister 2 Cancer-breast No Family History Cancer-ovarian No Family History Relation Name Status Comments Brother Alive Father Mother Sister 1 Alive Sister 2 Alive Social History Tobacco Use Types Packs/Day Years Used Date Smoking Tobacco: Every Day Cigarettes 1 47.7 Started: 06/25/1973; Last attempted to quit: 06/25/2017 [...] Answer Date Recorded PHQ-2 TOTAL SCORE 1 03/20/2025 Social Connections Answer Date Recorded Frequency of Communication with Friends and Fami ly 0 07/05/2022 Alcohol Use Answer Date Recorded How often do you have a drink containing alcohol ? 2 03/03/2025 How many drinks containing a lcohol do you have on a typical day when you are drinking? 0 03/03/2025 How often do you have five or more drinks on one occasion? 0 03/03/2025 Financial Resource Strain Answer Date R ecorded [...] Housing in the Last Year 1 07/05/2022 Comments No Sex and Gender Information Value Date Recorded Sex Assigned at Not on file Legal Sex Female 7:07 AM VARNISHER APPRENTICE Gender Identity Not on file Sexual Orientation Not on file Obstetrics History Para Term AB IAB SAB Ectopic Multiple Livin g Live Births 4 3 Date Outcome GA Total Labor Labor/2nd/3rd Weight Sex Type Anes PTL Gladys A1 A5 Name Clin Para Para Para Last Filed Vital Signs Vital Sign Reading Time Taken Comments Blood Pressure 126/80 03/20/2025 12:34 PM CDT Pulse 82 03/20/2025 11:54 AM CDT Temperature 36.8 C (98.3 F) 03/25/2024 3:57 PM CDT Respiratory Rate 16 03/25/2024 3:57 PM CDT Oxygen Saturation 95% 03/20/2025 11:54 AM CDT Inhaled Oxygen Concentration - - Weight 76.7 kg (169 lb 1.6 oz) 03/20/2025 11:54 AM CDT Height 163.5 cm (5' 4.37) 03/20/2025 11:54 AM C DT Body Mass Index 28.69 03/20/2025 11:54 AM CDT Plan of Treatment Upcoming Encounters Date Type Department Care Team (Late st Contact Info) Description 03/31/2025 2:10 PM CDT Ancillary Procedure [address] [address] Health Maintenance Due Date Last Done Comments HIV for age 15-65 1986 Hepatitis C screening for ag e 18-79 1989 Pneumococcal series for age 50+ (1 of 2 - PCV) [address] (for lung CA) ag e 50-80 2021 Zoster (shingles) series for age 50+ (1 of 2) 2021 Mammogram for age 45-75 02/14/2025 02/15/20 24, 05/18/2021, 08/26/2019, Additional history exists COVID-19 vaccine series ( - 2023- season) 2025 Influenza Vaccine (#1) 2025 03/31/2021, 2015 Colonoscopy through age 75 09/22/2025 09/22/2022 BMI (ht and wt on same day) for age 18+ 03/20/2026 03/20/2025, 03/14/2024, 07/05/2022, Additional history exists Depression screening for age 12+ 03/20/2026 03/20/2025, 03/14/2024, 11/23/2023, Additional history exists Pap test for age 21-65 05/18/2026 , 05/18/2021, 02/12/2018, Additional history exists Tetanus booster 07/07/2029 07/07/2019, 03/18/2008 Lipids for age 45-75 03/20/2030 03/20/2025, 03/14/2024, 07/05/2022, Additional history exists RSV vaccine for adults or (1 - 1-dose 75+ series) 2046 Hepatitis B series for 19+ Completed 09/24, 05/13/2008, 03/18/2008 Procedures Procedure Name Priority Date/Time Associated Diagnosis Comments CBC WITH AUTO DIFFERENTIAL Routine 03/20/2025 12:41 PM CDT Mixed hyperlipidemia TSH WITH REFLEX Routine 03/20/2025 12:41 PM CDT Mixed hyperlipidemia HEMOGLOBIN A1C MONITORING (POCT) Routine 03/20/2025 12:41 PM CDT Mixed hyperlipidemia LIPID PANEL W REFLEX MEASURED LDL Routine 03/20/2025 12:41 PM CDT Mixed hyperlipidemia COMP METABOLIC PANEL Routine 03/20/2025 12:41 PM CDT Mixed hyperlipidemia CBC WITH AUTO DIFFERENTIAL Routine 03/20/2025 12:41 PM CDT Mixed hyperlipidemia XR MAMMO POLI BILAT SCREEN Routine 02/15/2024 1:41 PM CDT Visit for screening mammogram SCAN-COLONOSCOPY 09/22/2022 8:00 AM CDT HPV HIGH RISK Routine 05/18/2021 9:30 AM VARNISHER APPRENTICE Cervical cancer screening from Last 3 Months or Most Recently Relevant to Health Maintenance Results * (ABNORMAL) CBC WITH AUTO DIFFERENTIAL (03/20/2025 12:41 PM CDT) [facility] WHITE BLOOD CELL COUNT 6.5 3.8 - 10.8 Thousand/u L 03/20/2025 12:58 PM CDT [facility] RED BLOOD CELL COUNT 5.13(H) 3.80 - 5.10 Million/uL 03/20/2025 12:58 PM CDT [facility] HEMOGLOBIN 14.6 11.7 - 15.5 g/dL 03/20/2025 12:58 PM CDT [facility] HEMATOCRIT 43.4 35.0 - 45.0 % 03/20/2025 12:58 PM CDT [facility] MCV 84.6 80.0 - 100.0 fL 03/20/2025 12:58 PM CDT [facility] MCH 28.5 27.0 - 33.0 pg 03/20/2025 12:58 PM CDT [facility] MCHC 33.6 32.0 - 36.0 g/dL 03/20/2025 12:58 PM CDT [facility] Comment: For adults, a slight decrease in the calculated MCHC value (in the range of 30 to 32 g/dL) is most likely not clinically significant; however, it should be interpreted with caution in correlation with other red cell parameters and the patient's clinical condition. RDW 12.3 11.0 - 15.0 % 03/20/2025 12:58 PM CDT [facility] PLATELET COUNT 240 140 - 400 Thousand/u L 03/20/2025 12:58 PM CDT [facility] MPV 10.5 7.5 - 12.5 fL 03/20/2025 12:58 PM CDT [facility] NEUTROPHILS 52.5 % 03/20/2025 12:58 PM CDT [facility] LYMPHOCYTES 35.8 % 03/20/2025 12:58 PM CDT [facility] MONOCYTES 9.2 % 03/20/2025 12:58 PM CDT [facility] EOSINOPHILS 2.0 % 03/20/2025 12:58 PM CDT [facility] BASOPHILS 0.5 % 03/20/2025 12:58 PM CDT [facility] ABSOLUTE NEUTROPHILS 3413 1500 - 7800 cells/uL 03/20/2025 12:58 PM CDT [facility] ABSOLUTE LYMPHOCYTES 2327 850 - 3900 cells/uL 03/20/2025 12:58 PM CDT [facility] ABSOLUTE MONOCYTES 598 200 - 950 cells/uL 03/20/2025 12:58 PM CDT [facility] ABSOLUTE EOSINOPHILS 130 15 - 500 cells/uL 03/20/2025 12:58 PM CDT [facility] ABSOLUTE BASOPHILS 33 0 - 200 cells/uL 03/20/2025 12:58 PM CDT [facility] Blood BLOOD SPECIMEN / Unknown [facility] / Unknown 03/20/2025 12:41 PM CDT 03/20/2025 12:41 PM CDT us Mar Lizama MD HEMATOLOGY Final Result [facility] [address] [place] [address], [place] [phone] [facility] [address] [place] [address], [place] * TSH WITH REFLEX (03/20/2025 12:41 PM CDT) TSH W/REFLEX TO FT4 1.36 mIU/L 03/21/2025 4:00 AM CDT [facility] Comment: Reference Range > or = 20 Years 0.40-4.50 Ranges First trimester 0.26-2.66 Second trimester 0.55-2.73 Third trimester 0.43-2.91 Blood BLOOD SPECIMEN / Unknown [facility] / Unknown 03/20/2025 12:41 PM CDT 03/20/2025 12:41 PM CDT Mar Lizama MD CHEMISTRY Final Result [facility] [address] [place] [address], * (ABNORMAL) LIPID PANEL W REFLEX MEASURED LDL (03/20/2025 12:41 PM CDT) CHOLESTEROL, TOTAL 141 <200 mg/dL 03/21/2025 3:47 AM CDT [facility] TRIGLYCERIDES 137 <150 mg/dL 03/21/2025 3:47 AM CDT [facility] HDL CHOLESTEROL 37(L) > OR = 50 mg/dL 03/21/2025 3:47 AM CDT [facility] NON HDL CHOLESTEROL 104 <130 mg/dL (calc) 03/21/2025 3:47 AM CDT [facility] Comment: For patients with diabetes plus 1 major ASCVD risk factor, treating to a non-HDL-C goal of <100 mg/dL (LDL-C of <70 mg/dL) is considered a therapeutic option. CHOL/HDLC RATIO 3.8 <5.0 (calc) 03/21/2025 3:47 AM CDT [facility] LDL-CHOLESTEROL 80 mg/dL (calc) 03/21/2025 3:47 AM [facility] Comment: Reference range: <100 Desirable range <100 mg/dL for primary prevention; <70 mg/dL for patients with CHD or diabetic patients with > or = 2 CHD risk factors. LDL-C is now calculated using the Jose A-Norma calculation, which is a validated novel method providing better accuracy than the Friedewald equation in the estimation of LDL-C. Jose A SS et al. SEAMUS. 2013;310(19): 0228-1094 (http://education.shopkick.SocialMart/faq/PIR941) Blood BLOOD SPECIMEN / Unknown [facility] / Unknown 03/20/2025 12:41 PM CDT 03/20/2025 12:41 PM CDT us Mar Lizama MD CHEMISTRY Final Result Performing Organization Address [facility]/ZIP Co de Phone Number [facility] [address] [address], [place] [phone] * HEMOGLOBIN A1C MONITORING (POCT) (03/20/2025 12:41 PM CDT) [facility] POC HEMOGLOBIN A1C 5.5 <6.0 % OF TOTAL HGB 03/20/2025 12:59 PM CDT [facility] Comment: Any point of care results exhibiting inconsistency with the patient's clinical status should be repeated using a different testing method. Blood BLOOD SPECIMEN / Unknown [facility] / Unknown 03/20/2025 12:41 PM CDT 03/20/2025 12:41 PM CDT us Mar Lizama MD CHEMISTRY Final Result Performing Organization Address [facility] Co de Phone Number [facility] [address] [address], [place] [phone] [place] [address], * COMP METABOLIC PANEL (03/20/2025 12:41 PM CDT) Pathologist [facility] SODIUM 142 135 - 146 mmol/L 03/21/2025 3:47 AM CDT [facility] POTASSIUM 3.9 3.5 - 5.3 mmol/L 03/21/2025 3:47 AM CDT [facility] CHLORIDE 105 98 - 110 mmol/L 03/21/2025 3:47 AM CDT [facility] CARBON DIOXIDE 28 20 - 32 mmol/L 03/21/2025 3:47 AM CDT [facility] GLUCOSE 91 65 - 99 mg/dL 03/21/2025 3:47 AM CDT [facility] Comment: Fasting reference interval CALCIUM 9.6 8.6 - 10.4 mg/dL 03/21/2025 3:47 AM CDT [facility] CREATININE 0.69 0.50 - 1.03 mg/dL 03/21/2025 3:47 AM CDT [facility] BUN/CREATININE RATIO SEE NOTE: 6 - 22 (calc) 03/21/2025 3:47 AM CDT [facility] Comment: Not Reported: BUN and Creatinine are within reference range. EGFR 103 > OR = 60 mL/min/1. 73m2 03/21/2025 3:47 AM CDT [facility] ALBUMIN 4.4 3.6 - 5.1 g/dL 03/21/2025 3:47 AM CDT [facility] PROTEIN, TOTAL 6.8 6.1 - 8.1 g/dL 03/21/2025 3:47 AM CDT [facility] BILIRUBIN, TOTAL 0.3 0.2 - 1.2 mg/dL 03/21/2025 3:47 AM CDT [facility] ALKALINE PHOSPHATASE 138 37 - 153 U/L 03/21/2025 3:47 AM CDT [facility] ALT 19 6 - 29 U/L 03/21/2025 3:47 AM CDT [facility] AST 15 10 - 35 U/L 03/21/2025 3:47 AM CDT [facility] UREA NITROGEN (BUN) 8 7 - 25 mg/dL 03/21/2025 3:47 AM CDT [facility] GLOBULIN 2.4 1.9 - 3.7 g/dL (calc) 03/21/2025 3:47 AM CDT [facility] ALBUMIN/GLOBULI N RATIO 1.8 1.0 - 2.5 (calc) 03/21/2025 3:47 AM CDT [facility] Blood BLOOD SPECIMEN / Unknown [facility] / Unknown 03/20/2025 12:41 PM CDT 03/20/2025 12:41 PM CDT us Mar Lizama MD CHEMISTRY Final Result [facility] [address] [place] [address], * XR MAMMO POLI BILAT SCREEN (02/15/2024 1:41 PM CDT) Anatomical Region Laterality Modality BREASTS, Breast Left, Breast Right Bilateral Mammography Impressions 02/15/2024 4:20 PM CDT There is no radiographic evidence for malignancy. Recommend annual mammograms. MAMMOGRAM ASSESSMENT: ACR 1 Negative PATIENTS: You will also receive a letter with your examination results in an easy to read format. If you have questions about your results, please contact your referring provider. Narrative 02/15/2024 4:20 PM CDT For Patients: As a result of the Cures Act, medical imaging exams and procedure reports are released immediately into your electronic medical record. You may view this report before your referring provider. If you have questions, please contact your health care provider. XR MAMMO POLI BILAT SCREEN [[id number]] CLINICAL HISTORY: This is an asymptomatic 54 y.o. patient. INDICATION FOR EXAM: Mammogram Screening. TECHNIQUE: CC & MLO views were obtained. This study was evaluated with the assistance of Computer-Aided Detection. Breast Tomosynthesis was used in interpretation. COMPARISON FILM: Yes 05/18/21 [facility] 08/26/19 [facility] FINDINGS: The breasts are extremely dense, which lowers the sensitivity of mammography. There are no dominant masses, suspicious micro calcifications or areas of architectural distortion. us Mar Lizama MD MAMMO Final Result * SCAN-COLONOSCOPY (09/22/2022 8:00 AM CDT) Narrative Procedure Note Vince Knapp MD - 09/22/2022 6:54 AM CDT [facility] [address] [place] [address], [address], [place] [address] Patient Name: Shanti So Gender: Female Exam Date: 09/22/2022 Visit Number: [id number] Age: 52 Years Date of : 1970 Attending MD: Vince Knapp MD Medical Record#: [id number] Procedure: Colonoscopy Indications: Previous adenomatous polyp(s) Referring [...] of the colorectum is defined by the [place] [employer] (ACG) as an adenoma that is 1 cm or more in size,contains an appreciable villous component, or has high grade dysplasia(Enrike JH; Polyp Guideline: Diagnosis, Treatment, and Surveillance forPatients with Colorectal Polyps. Am J [id number];95(11):2180-5980). This polyp qualifies as such. Patients withadvanced adenomas are at increased risk for synchronous and metachronousadditional advanced adenomas. Appropriate follow-up is suggested. MICROSCOPIC A: Performed B: Performed C: Performed D: Performed E: Performed Electronically signed by: Lj Hendrickson MD Interpreted at [facility] [address] Orders Instruction(s)/Education: Instruction/Education Timeframe Assessment Colon Cancer [...] Mar Lizama MD cc: Mar Lizama MD us Vince DIALLOBS OTHER Irene l Result * HPV HIGH RISK (05/18/2021 9:30 AM VARNISHER APPRENTICE) TYPE 16 Negative Negative 05/24/2021 10:50 AM VARNISHER APPRENTICE [facility] TYPE 18 Negative Negative 05/24/2021 10:50 AM VARNISHER APPRENTICE [facility] OTHER HIGH RISK TYPES Negative Negative 05/24/2021 10:50 AM VARNISHER APPRENTICE [facility] Other (Cervical) Non-Blood / Unknown 05/18/2021 9:30 AM VARNISHER APPRENTICE 05/20/2021 10:29 AM VARNISHER APPRENTICE Narrative [facility] - 05/24/2021 10:50 AM VARNISHER APPRENTICE HPV types 16, 18, 31, 33, 35, 39, 45, 51, 52, 56, 58, 59, 66 and 68 DNA were undetectable or below the pre-set threshold. Methodology: Selam Marcos 4800 HPV Test us Mar Lizama MD MICROBIOLOGY Final Result [facility] [address] [place] [address], [place] from Last 3 Months or Most Recently Relevant to Health Maintenance Insurance [facility] [employer] Member Subscriber Plan / Payer (Ef fective 2011-Present) Name:Shanti So Relation to Subscriber:Employee Name:[employer] Date of :1999 (Home) (Work) Address: [address] [place] [id number] Payer ID:Not on file Group ID:NONE Type:Not on file [id number] Address: [facility] [address] [place] [address] [facility] Care Teams [employer] Relationship Specialty [place] [address] [place] [address] PCP - General Family Practice 08/08/13
--- OUTSIDE RECORDS SUMMARY | 2025-03-24 11:22 | XMS_ITS | Clinical Summary ---
Author Organization [facility] Address [address] [facility] [place] [address] Care Team Providers Care E Tailer Name Role Phone Mar Lizama MD Primary Care Provider [phone] Allergies Active Allergy Reactions Criticality Noted Date [...] School Help Needed Not on file 03/25 Comments No Sex and Gender Information Value Date Recorded Sex Assigned at Not on file Legal Sex Female 3:25 AM HAY STACKER OPERATOR Gender Identity Not on file Sexual Orientation Not on file Last Filed Vital Signs Vital Sign Reading Time Taken Comments Blood Pressure 148/100 07/04/2023 5:25 PM HAY STACKER OPERATOR Pulse 89 07/04/2023 5:25 PM HAY STACKER OPERATOR Temperature 36.8 C (98.3 F) 07/04/2023 1:20 PM HAY STACKER OPERATOR Respiratory Rate 18 07/04/2023 5:25 PM HAY STACKER OPERATOR Oxygen Saturation 98% 07/04/2023 5:25 PM HAY STACKER OPERATOR Inhaled Oxygen Concentration - - Weight 77.1 kg (170 lb) 07/01/2020 3:00 PM HAY STACKER OPERATOR Height 162.6 cm (5' 4) 07/01/2020 3:00 PM HAY STACKER OPERATOR Body Mass Index 29.18 07/01/2020 3:00 PM HAY STACKER OPERATOR Plan of Treatment Health Maintenance Due Date Last Done Comments ADVANCE CARE PLANNING 1970 ANNUAL REVIEW OF HM ORDERS 1970 CT COLONOGRAPHY 1970 FIT 1970 FLEX SIG 1970 sDNA (Cologuard) 1970 HIV SCREENING 1986 HEPATITIS C SCREENING 1989 PAP 01/24/1992 LIPID 2011 LUNG CANCER SCREENING 2021 PNEUMOCOCCAL VACCINE 50+ YEARS (1 of 1 - PCV) 2021 ZOSTER VACCINE (1 of 2) 2021 MAMMO SCREENING 05/18/2023 05/18/2021, 08/26/2019 YEARLY PREVENTIVE VISIT 07/05/2023 07/05/19 23, 05/18/2021 PHQ-2 (once per calendar year) 2024 COVID-19 VACCINE ( - 2024-2 6 season) 2025 INFLUENZA VACCINE (#1) 2025 , 05/08/2016 DIABETES SCREENING 07/04/2026 07/04/2023, 05/01/2006 DTAP/TDAP/TD VACCINE (3 - Td or Tdap) 07/07/2029 07/07/2019, 03/18/2008 COLONOSCOPY 09/22/2032 09/22/2022 COLORECTAL CANCER SCREENING 09/22/2032 HEPATITIS B VACCINE Completed 09/24/2008, 05/13/2008, 03/18/2008 HPV VACCINE (No Doses Required) Completed MENINGITIS VACCINE Aged Out No longer eligible based on patient's age to complete this topic Medical Devices Implanted Type Area Financial Accountant Device Identifier Shelf Expiration Date Model / Serial / Lot Mirena Iud Implanted:Qty: 1 on 07/05/2020 N/A: Vagina KIRSTY 10/22/2022 [facility] [id number] / / [id number] Procedures Procedure Name Priority Date/Time Associated Diagnosis Comments BASIC METABOLIC PANEL STAT 07/04/2023 1:47 PM HAY STACKER OPERATOR from Last 3 Months or Most Recently Relevant to Health Maintenance Results * (ABNORMAL) Basic metabolic panel (07/04/2023 1:47 PM HAY STACKER OPERATOR) Sodium 142 135 - 145 mmol/L 07/04/2023 2:19 PM HAY STACKER OPERATOR [facility] Comment:Reference intervals for this test were updated on 03/20/2023 to more accurately reflect our healthy population. There may be differences in the flagging of prior results with similar values performed with this method. Interpretation of those prior results can be made in the context of the updated reference intervals. Potassium 3.5 3.4 - 5.3 mmol/L 07/04/2023 2:[address] [facility] Chloride 105 98 - 107 mmol/L 07/04/2023 2:[address] [facility] Carbon Dioxide (CO2) 26 22 - 29 mmol/L 07/04/2023 2:[address] [facility] Anion Gap 11 7 - 15 mmol/L 07/04/2023 2:[address] [facility] Urea Nitrogen 7.0 6.0 - 20.0 mg/dL 07/04/2023 2:[address] [facility] Creatinine 0.59 0.51 - 0.95 mg/dL 07/04/2023 2:[address] [facility] GFR Estimate >90 >60 mL/min/1. 73m2 07/04/2023 2:[address] [facility] Calcium 9.2 8.6 - 10.0 mg/dL 07/04/2023 2:[address] [facility] Glucose 107(H) 70 - 99 mg/dL 07/04/2023 2:[address] [facility] Blood STRUCTURE OF RIGHT UPPER LIMB / Unknown Venipuncture / Unknown 07/04/2023 1:47 PM HAY STACKER OPERATOR 07/04/2023 1:53 PM HAY STACKER OPERATOR Ulises Rodriguez MD LAB - BLOOD ORDERABLES nal Result LABORATORY [facility] [address] [facility] (1st floor, no room number) [place] [address], [facility] [phone] from Last 3 Months or Most Recently Relevant to Health Maintenance Insurance [facility] [employer] Care Teams E Tailer Relationship Specialty [place] [address] [place] [address] PCP - General Family Practice 04/21/13
[2025-03-24 11:24] VITALS: BP 145/86; PULSE 84; RESP 16; TEMP 35.9; O2SAT 95; BMI 29.0
--- NOTE | 2025-03-24 11:32 | CRLHL7_ITS ---
For Patients: As a result of the Cures Act, medical imaging exams and procedure reports are released immediately into your electronic medical record. You may view this report before your referring provider. If you have questions, please contact your health care provider. Indication: twisted L knee Technique: Three views of the left knee Comparison: None Findings/Impression: No acute fracture or malalignment. No knee joint effusion. 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 No suspicious osseous lesions. The soft tissues are without acute abnormality. Dictated by Dustin Duenas MD @ 03/24/2025 12:02:08 PM (Electronically Signed)
--- OUTSIDE RECORDS SUMMARY | 2025-03-24 11:50 | XMS_ITS | Data Portability ---
Author Organization [place] - [employer], [id number] Address [address] [address] Assessment No assessment recorded. Plan of Treatment Reminders Order Date Submit Date Provider Last Modified By Organization Details Last Modified Time Details Appointments None recorded. Lab None recorded. Referral None recorded. Procedures None recorded. Surgeries None recorded. Imaging US, transvagina l 2019 020 adiel [facility] [employer] [place], [address] [place], [address], 0 22:37:53 US, pelvis [email or web address] [facility] [place] [employer] [place], [address] [place], [address], 0 18:50:24 US, transvagina l 2019 020 [email or web address] Not available 0 10:18:09 Medication Orders None recorded. Patient TargetsNo targets recorded. Patient InstructionsNo instructions recorded. Reason for Referral None Reported. Results Created Date Observation Date Name Description Value Unit Range Abnormal Flag Note LastModifiedBy Organization Detail LastModifiedTime 06/01/20 20 US, pelvi s No observ ation record ed. [email or web address] [employer] [place] [address] [place], [address], 06/07/2020 10:08:39 06/02/20 20 US, trans vagin al No observ ation record ed. adiel Johnson [address], [place], [address], 06/20/2020 09:47:43 Result Notes None recorded. Procedures Surgical History Date Name Laterality Status Provider Name and Address Organization Details Recorded Time 0 Date of Last Pap Smear completed Jennyfer Woodson TERMED [facility] [employer] 05/25/2020 17:38:17 ligation of bilateral fallopian tubes completed Not Available [facility] 01/29/2020 05:09:51 Imaging Results None recorded. Procedure Notes None recorded. Medical Equipment None Reported. Allergies Allergen ID Allergen Name Allergen Category Reaction Reaction Severity Criticality Documentation Date Start Date Code Code System Note Provider Name and Address Organization Details Recorded Time [id number] honey bee venom medicatio n Not available Not available Not available 05/26/2020 [id number] RxNorm Jennyfer Woodson TERMED null, [facility] [employer] 0 14:40:18 Medications Name Sig Start Date [...] No t Available Vitals Date Recorded Body height Body mass index (BMI) Body weight Systolic And Diastolic Provider Name and Address Organization Details Last Updated DateTime 07/20/2020 162.4584 cm 30.1 kg/m2 34249.66 g 136/78 mm[Hg] Lou Henriquez (TERMED) [facility] [employer] 07/20/2020 12:13:08 Date Recorded Body height Body mass index (BMI) Body weight Systolic And Diastolic Provider Name and Address Organization Details Last Updated DateTime 05/26/2020 162.4584 cm 29.9 kg/m2 27752.35 g 140/84 mm[Hg] Jennyfer Woodson TERMED [facility] [employer] 05/26/2020 14:39:59 Date Recorded Body height Body mass index (BMI) Body weight Systolic And Diastolic Provider Name and Address Organization Details Last Updated DateTime 06/01/2020 162.4584 cm 30.1 kg/m2 76744.66 g 122/70 mm[Hg] Lou Henriquez (TERMED) [place] [facility] [employer] 06/01/2020 17:11:00 Social History Question Answer Notes LastModified by [employer] Details LastModified Time Tobacco Smoking Status Current Every Day Smoker Tobacco *Status: Current every day Not Available [facility]/02/[facility] 11:57:44 What Is Your Level Of Caffeine Consumption? None Caffeine Information not available 02/02/2020 History Of Domestic Violence No Denies Any History Of Domestic Violence Information not available 02/02/2020 Marital Status [email or web address] Information not available 02/02/2020 Are You Sexually Active? Yes Currently Sexually Active Information not available 02/02/2020 Sex: Unknown Functional Status Question Answer Note LastModified by [employer] Details LastModified Time What is your exercise level? Moderate Exercise on a Regular Basis [id number] Information not available 02/02/2020 Mental Status None recorded. Family History Relationship Description Onset Age of this Age Resolved Age Notes LastModified by Organization Details LastModified Time Brother Family history of clinical finding Family histor y of sleep apnea Not available 01/29/2020 05:36:14 Brother Family history of malignant neoplasm Family Histor y of Cancer ; Thyroi d Not available 01/29/2020 05:36:14 Mother Family history: neoplasm - trachea/bron chus/lung Family histor y of lung cancer Not available 01/29/2020 05:36:14 Sister Family history of malignant neoplasm of genital structure Family histor y of uterin e cancer Not available 01/29/2020 05:36:14 Father Family history of Cardiovascul ar disease Family Histor y of Cardia c Arrhyt hmia Not available 01/29/2020 05:36:14 Notes:Family History of Diab etes ICD-9 V18.0 [...] Encounter Closed Date Diagnosis/Indication Diagnosis SNOMED-CT Code Diagnosis ICD10 Code Diagnosis IMO Codes Diagnosis Note [id number] CRISTAL AMOS MD [id number] [address] 05/26/2020 14:30:35 05/26/2020 15:16:48 Menorrhagia 154593634 N92.0 if canbleeds heavy with menses x 2 yrs and changes q 1-2 hrs so hgb and us and will go from there depending on results--r ev ?endo bx vs dc and iud also rev--2 and had tubal-----? us and possible iud next wk [id number] CRISTAL AMOS MD [id number] [address] 06/01/2020 16:37:22 06/01/2020 18:50:24 Menorrhagia 090365063 N92.0 if canbleeds heavy with menses x 2 yrs and changes q 1-2 hrs so hgb and us and will go from there depending on results--r ev ?endo bx vs dc and iud also rev--2 and had tubal-----? us and possible iud next wk [id number] CRISTAL AMOS MD [id number] [address] 06/01/2020 17:00:24 06/02/2020 12:53:27 Menorrhagia 774131003 N92.0 if canbleeds heavy with menses x 2 yrs and changes q 1-2 hrs so hgb and us and will go from there depending on results--r ev ?endo bx vs dc and iud also rev--2 and had tubal-----? us and possible iud next wk--06/01 US REV AND ? POLYP SO DC HYS AND IUD REV--SISTE R WITH UTERINE CA SO REV BENEFITS OF IUD AND HAS HAD A TUBAL--20M IN WITH REV [id number] CRISTAL AMOS MD [id number] [facility] [address] [place] [address] 07/20/2020 11:56:21 07/21/2020 10:23:40 Menorrhagia 353357934 N92.0 if canbleeds heavy with menses x 2 yrs and changes q 1-2 hrs so hgb and us and will go from there depending on results--r ev ?endo bx vs dc and iud also rev--2 and had tubal---la st us-2019--? us and possible iud next wk--06/01 US REV AND ? POLYP SO DC HYS AND IUD REV--SISTE R WITH UTERINE CA SO REV BENEFITS OF IUD AND HAS HAD A TUBAL--20M IN WITH REV--here for post op and 1 pad qday and light but if cont past us call and ?small dose prog--us 2-3 wks Health Concerns Section Related Observation LastModified by Organization Detai ls LastModified Time None Recorded Concern Status LastModified by Organization Details LastModified Time None Recorded Advance Directives Directive None Recorded Payers Insurance Date Sequence Insurance Name Policy Number Policy Jesus Covered Member ID Jesus Member ID Guarantor Name 06/02/2020 1 *SELF PAY* Nathan Olmsteadenheuvel 07/20/2020 1 [employer] (PPO) [id number] Shanti Mixon Vandenheuvel [id number] hSanti So Notes Date Note Type Note Provider Name and Address Organization Details Recorded Time 05/26/2020 text/html Patient presents today for abnormal uterine bleeding The [...] Are there any additional complaints? No. Other: . Cristal Amos (TERMED) null, [place] [facility] [employer] 05/29/2020 22:36:03 06/01/2020 text/html MENORRHAGIA Cristal Amos (TERMED) null, [place] [facility] [employer] 06/01/2020 21:18:25 07/20/2020 text/html Surgery Date: 07/05/2020. Patient presents for her post-operative evaluation. Surgical procedure: Fractional D&C, operative hysteroscopy and insertion of Mirena IUD. Indication: Menorrhagia. Pathology findings: benign. The procedure was done by: Cristal Amos MD. She has no current complaints. Cristal Amos (TERMED) [facility] - [employer] 07/20/2020 12:33:12 OBGyn Episode No OBEpisode recorded.
--- NOTE | 2025-03-24 12:13 | ED_ITS ---
HPI - Extremity Injury (Lower) General Chief Complaint: Extremity Pain/Injury, Lower Stated Complaint: L knee injury Time Seen by Provider: 03/24/25 11:43 History of Present Illness HPI Narrative: This 55-year-old female comes in with severe pain in her left knee. She states that she twisted both knees about 2 weeks ago and had an immediate pain that dissipated for the most part within a day or so. She did have a small amount of swelling. She has had some discomfort residually since then but today comes in because she had severe pain in her left knee such that she was unable to bear weight on it. She does not report any other injury event or strenuous activity. She does have a history of surgery to both of her knees in the past for meniscus repair. She does not report any catching or locking or feeling of instability. She reports pain along the medial and lateral aspect of her left knee that is present with weight-bearing. She does not have any pain when nonweightbearing and is able to raise her leg up from the bed. When doing this she does report some discomfort mildly. Related Data Home Medications ?Medication ?Instructions ?Recorded ?Confirmed amlodipine 2.5 mg tablet 2.5 mg PO DAILY 08/02/22 atorvastatin 10 mg tablet 10 mg PO QPM 10/15/23 sumatriptan succinate 50 mg tablet 50 mg PO .As Needed PRN 10/15/23 03/24/25 Previous Rx's ?Medication ?Instructions ?Recorded ketorolac 10 mg tablet 10 mg PO TID 5 days #15 tabs 03/24/25 Allergies Allergy/AdvReac Type Severity Reaction Status Date / Time bee venom protein (honey bee) Allergy Verified 03/24/25 11:32 hydrochlorothiazide Allergy Rash Verified 03/24/25 11:32 lisinopril Allergy Verified 03/24/25 11:32 Review of Systems Status of ROS: Reports: 10 or more systems reviewed and unremarkable except as noted in History and below Narrative: Constitutional: No fevers, no weight gain or loss. Eyes: No discharge. No vision changes. HENT: No congestion, no sore throat, no ear pain. Cardiovascular: No chest pain, no palpitations. Respiratory: No shortness of breath, no wheezes, no cough. Gastrointestinal: No abdominal pain, no vomiting, no diarrhea. Genitourinary: No dysuria, no hematuria. Musculoskeletal: Bilateral knee pain, left much greater than right. Skin: No rashes, no pruritis. Neurological: No dizziness, weakness, sensory change, speech change. Endo/Heme/Allergies: No bruising or bleeding. No polydipsia. Pysch: no suicidality, no anxiety, no insomnia. All other systems reviewed and are negative. [facility] Medical History (Updated 03/24/25 @ 12:30 by Edwin Mitchell MD) High cholesterol ?E78.00 - Pure hypercholesterolemia, unspecified (ICD-10) High blood pressure ?I10 - Essential (primary) hypertension (ICD-10) Diverticulitis ?K57.92 - Diverticulitis of intestine, part unspecified, without perforation or abscess without bleeding (ICD-10) Surgical History (Updated 12/25/23 @ 08:08 by Hilda Dumont ~ [facility], [facility]) Status post medial meniscectomy of right knee (11/29/23) ?Z98.890 - Other specified postprocedural states (ICD-10) Hx of dilation and curettage ?Z98.890 - Other specified postprocedural states (ICD-10) Status post tubal ligation ?Z98.51 - Tubal ligation status (ICD-10) S/P left knee arthroscopy (02/17/21) ?Z98.890 - Other specified postprocedural states (ICD-10) Social History (Reviewed 12/31/23 @ 15:02 by Hilda Dumont ~ [facility], [facility]) Smoking Status: Current every day smoker What tobacco products do you use: cigarettes Smoking packs per day: 1 Smoking cigarettes per day: 20.0 Do you use any of these nicotine containing products: None How often do you have a drink containing alcohol: monthly or less How many standard drinks containing alcohol do you have on a typical day: 1 or 2 How often do you have six or more drinks on one occasion: Never AUDIT-C Alcohol total score: 1 Non-prescribed substance use: denies use Caffeine: Yes Are you using contraception or practicing any form of control: Yes (post menopausal) Exam Narrative: Exam Narrative: Constitutional: Well-developed, well-nourished, no acute distress. HEENT: Normocephalic, atraumatic. Neck: Normal range of motion. Nontender. Supple. Heart: Regular. No murmurs. Normal rate. Intact distal pulses. Lungs: Clear to auscultation. No chest discomfort. No wheezes, rhonchi, or rales. Abdomen: Normal bowel sounds. Nontender. No rebound tenderness. Genitalia: Deferred. Back: No midline tenderness. Normal range of motion. Extremities: Left knee pain. No obvious effusion. No ligamentous instability. Skin: Intact. No rash. Warm. No erythema or pallor. Neurologic: No altered sensation. No weakness. Alert and oriented. Psychiatric: No suicidality. No anxiety or depression. No insomnia. Nursing notes and vitals signs are reviewed. Const: Vital Signs, click to edit/add: Vital Signs - 24 hr 03/24/25 11:24 Temperature 96.6 F L Pulse Rate [Pulse Oximeter] 84 Respiratory Rate 16 Blood Pressure [Ri ght Upper Arm] 145/86 H Pulse Oximetry 95 Oxygen Delivery Me thod Room Air Course Vital Signs Vital signs: Initial Vital Signs Temperature 96.6 F L 03/24/25 11:24 Temperature Source Temporal Artery Scan 03/24/25 11:24 Pulse Rate 84 03/24/25 11:24 Respiratory Rate 16 03/24/25 11:24 Blood Pressure 145/86 H 03/24/25 11:24 Blood Pressure Mean 105 03/24/25 11:24 Blood Pressure Position Sitting 03/24/25 11:24 Pulse Oximetry 95 03/24/25 11:24 Oxygen Delivery Method Room Air 03/24/25 11:24 Vital Signs Temperature 96.6 F L 03/24/25 11:24 Pulse Rate 84 03/24/25 11:24 Respiratory Rate 16 03/24/25 11:24 Blood Pressure 145/86 H 03/24/25 11:24 Pulse Oximetry 95 03/24/25 11:24 Oxygen Delivery Method Room Air 03/24/25 11:24 Temperature 96.6 F L 03/24/25 11:24 Pulse Rate 84 03/24/25 11:24 Respiratory Rate 16 03/24/25 11:24 Blood Pressure 145/86 H 03/24/25 11:24 Pulse Oximetry 95 03/24/25 11:24 Oxygen Delivery Method Room Air 03/24/25 11:24 MDM - Extremity Injury (Lower) MDM Narrative Medical decision making narrative: This patient comes in with left knee pain as described above. I did obtain x- ray of the left knee which shows no acute findings but there is some degenerative changes in the medial component of the left knee. The patient has pain only with weight-bearing and may be exhibiting some joint wear and tear. She is okay to be discharged home. I advised her to follow-up with orthopedic clinic. She does have crutches that she can use. A prescription for Toradol as also provided. Additionally I did write a return to work note. Imaging Data XR L Knee: Radiologist's impression: No acute fracture or malalignment. No knee joint effusion. 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 No suspicious osseous lesions. The soft tissues are without acute abnormality. Discharge Plan Discharge Clinical Impression: Knee pain, left Patient Disposition: Home, Self-Care Condition: Stable Additional Instructions: Use crutches as needed and increase ambulating as tolerated. Take medication also as needed and directed. Follow up with orthopedic clinic for further diagnosis and management. Call [phone] for appointment. Return if worsening. Prescriptions: New ketorolac 10 mg tablet 10 mg PO TID 5 Days Qty: 15 0RF No Action amlodipine 2.5 mg tablet 2.5 mg PO DAILY Patient Comments: TAKE 1 TABLET (2.5 MG) BY MOUTH ONCE DAILY. atorvastatin 10 mg tablet 10 mg PO QPM sumatriptan succinate 50 mg tablet 50 mg PO .As Needed PRN Rx Instructions: ONE TAB AT ONSET OF HEADACHE, MAY REPEAT Q2H PRN, MAX 200 MG/24 HRS Follow Up/Referrals: Mar Lizama MD [Primary Care Provider, Family Practice] Stand Alone Forms: [employer] Info Instructions
== END 2025-03-24 12:41 | disposition home or self-care (01) ==
PROVIDERS: Emergency Provider Emergency Medicine Emergency Medical Services; PCP Family Medicine
DX: M25.562 Pain in left knee (principal)
CPT/HCPCS: 73562; 99283; 99284